=== PATIENT | female | born 1965 | race Two or more races ===

== ENCOUNTER 2017-11-11 12:35 | Emergency (ER) | payer MEDICAID ==
[~2017-11-11] VITALS: Ht 157.5 cm; Wt 63.5 kg
[2017-11-11] MEDS ORDERED: SODIUM CHLORIDE 0.9% 1,000 ML IV ONE (13:13)
[2017-11-11 13:28] LABS: Basophils # (auto) 0 uL; Eosinophils # (auto) 0 uL; Monocytes # (auto) 0.3 uL; Neutrophils # (auto) 2.5 uL; Red Cell Distribution Width 16.3 % (11.8-14.3)
[2017-11-11 13:30] LABS: Basophils % (auto) 0.2 % (0.0-2.0); Eosinophils % (auto) 0.4 % (0.0-7.0); Hemoglobin 15.2 g/dL (12.2-16.2); Lymphocytes # (auto) 1.3 uL; Lymphocytes % (auto) 31.8 % (10.0-50.0); Mean Corpuscular Hemoglobin 36.1 pg (28.0-32.0); Mean Corpuscular Hgb Conc. 34.5 g/dL (32.0-36.0); Mean Corpuscular Volume 104.5 fL (80.0-100.0); Monocytes % (auto) 7.2 % (0.0-12.0); Neutrophils % (auto) 60.4 % (37.0-80.0); Platelet Count (auto) 104 10^3/uL (140-450); Red Blood Cells 4.21 10^6/uL (4.0-5.20); White Blood Cell 4.2 10^3/uL (4.4-10.8)
[2017-11-11 13:48] LABS: Amphetamine Screen, Urine NEGATIVE (NEGATIVE); Barbiturate Scree,Urine NEGATIVE (NEGATIVE); Benzodiazephine Screen, Urine NEGATIVE (NEGATIVE); Cannabinoid Screen, Urine NEGATIVE (NEGATIVE); Cocaine Screen, Urine NEGATIVE (NEGATIVE); Opiate Scree,Urine NEGATIVE (NEGATIVE); Phencyclidine Screen, Urine NEGATIVE (NEGATIVE)
[2017-11-11 13:56] LABS: Albumin 3.8 g/dL (3.4-5.0); BUN/Creatinine Ratio 10.3; Bilirubin, Total 1.2 mg/dL (0.2-1.0); Calcium 8.6 mg/dL (8.5-10.1); Potassium 3.7 mmol/L (3.5-5.1); Total Protein 8.5 g/dL (6.4-8.2)
[2017-11-11] MEDS ORDERED: LORazepam 0.5 MG TAB PO ONE (15:45)
[2017-11-11] MEDS ORDERED: LORazepam 2MG/ML-1ML VIAL ONE (20:11)
[2017-11-11] MEDS ORDERED: LORazepam 2MG/ML-1ML VIAL IV ONE (21:00)
[2017-11-11] MEDS ORDERED: chlordiazePOXIDE HCL 25 MG CAP PO ONE (22:15)
[2017-11-11] MEDS ORDERED: ALPRAZolam 0.5 MG TAB PO ONE (22:30)
[2017-11-12] MEDS ORDERED: LORazepam 2MG/ML-1ML VIAL IV ONE (02:00)
[2017-11-12] MEDS: LORazepam 0.5 MG TAB PO PRN ×2 (06:04→12:26)
[2017-11-12] MEDS ORDERED: CITALOPRAM HYDROBR 20 MG TAB PO SCH (10:00)
[2017-11-12 15:02] VITALS: BP 134/94
[2017-11-12] MEDS ORDERED: LORazepam 0.5 MG TAB PO ONE (15:15)
== END 2017-11-12 14:24 | disposition short-term general hospital (02) ==
LOC: ER 12:38
DX: F10.129 Alcohol abuse with intoxication, unspecified (principal); F41.9 Anxiety disorder, unspecified; F17.210 Nicotine dependence, cigarettes, uncomplicated; Y90.8 Blood alcohol level of 240 mg/100 ml or more
CPT/HCPCS: 36415; 80053; 80307; 80320; 85025; 96374; 96376; 99285; J2060

== ENCOUNTER 2018-11-16 12:06 | Emergency (ER) | payer MEDICAID ==
[~2018-11-16] VITALS: Ht 162.6 cm; Wt 61.2 kg
[2018-11-16] MEDS ORDERED: ALPRAZolam 0.5 MG TAB PO ONE (19:15)
[2018-11-16 19:28] VITALS: BP 125/72
== END 2018-11-16 19:37 | disposition home or self-care (01) ==
LOC: ER 12:06 → EDBD 12:06 → ER 19:37
DX: F41.9 Anxiety disorder, unspecified (principal); F31.9 Bipolar disorder, unspecified; F17.210 Nicotine dependence, cigarettes, uncomplicated
CPT/HCPCS: 93005

== ENCOUNTER 2018-12-30 17:12 | Emergency (ER) | payer MEDICAID ==
[~2018-12-30] VITALS: Ht 170.2 cm; Wt 72.6 kg
[2018-12-30 19:13] LABS: Eosinophils # (auto) 0 uL; White Blood Cell 4.7 10^3/uL (4.4-10.8)
[2018-12-30 19:15] LABS: Basophils # (auto) 0.1 uL; Basophils % (auto) 1.4 % (0.0-2.0); Eosinophils % (auto) 0.4 % (0.0-7.0); Hematocrit 45.1 % (36.0-46.0); Hemoglobin 15.3 g/dL (12.2-16.2); Lymphocytes # (auto) 1.4 uL; Lymphocytes % (auto) 29.1 % (10.0-50.0); Mean Corpuscular Hemoglobin 34.3 pg (28.0-32.0); Mean Corpuscular Volume 100.9 fL (80.0-100.0); Monocytes # (auto) 0.4 uL; Monocytes % (auto) 8.2 % (0.0-12.0); Neutrophils # (auto) 2.9 uL; Neutrophils % (auto) 60.9 % (37.0-80.0); Platelet Count (auto) 80 10^3/uL (140-450); Red Blood Cells 4.47 10^6/uL (4.0-5.20); Red Cell Distribution Width 15.7 % (11.8-14.3)
[2018-12-30 19:27] LABS: Amphetamine Screen, Urine NEGATIVE (NEGATIVE); Barbiturate Scree,Urine NEGATIVE (NEGATIVE); Benzodiazephine Screen, Urine NEGATIVE (NEGATIVE); Cannabinoid Screen, Urine NEGATIVE (NEGATIVE); Cocaine Screen, Urine NEGATIVE (NEGATIVE); Phencyclidine Screen, Urine NEGATIVE (NEGATIVE)
[2018-12-30 19:28] LABS: BUN/Creatinine Ratio 13.1; Potassium 3.6 mmol/L (3.5-5.1)
[2018-12-30] MEDS ORDERED: LORazepam 0.5 MG TAB PO ONE (19:30)
[2018-12-30 19:36] LABS: Opiate Scree,Urine NEGATIVE (NEGATIVE)
[2018-12-30] MEDS ORDERED: FOLIC ACID 1 MG, MULTIPLE VITAMIN 10 ML, MAGNESIUM SULF SDV 50% 8 MEQ, THIAMINE INJ 100... INJ SCH ×5 (19:37)
[2018-12-30 19:38] LABS: Bilirubin, Total 0.6 mg/dL (0.2-1.0); Total Protein 8.4 g/dL (6.4-8.2)
[2018-12-30] MEDS ORDERED: THIAMINE 100mg/ml INJ (200mg/2ml VIAL) IV ONE (22:30)
[2018-12-30] MEDS ORDERED: MVI in SODIUM CHLORIDE 0.9% 1,010 ML ONE (22:57)
[2018-12-31] MEDS ORDERED: SODIUM CHLORIDE 0.9% 500 ML IV ONE (00:30)
[2018-12-31] MEDS ORDERED: SODIUM CHLORIDE 0.9% 1,000 ML IV ONE (00:30)
[2018-12-31] MEDS ORDERED: LORazepam 0.5 MG TAB PO ONE (05:30)
[2018-12-31] MEDS ORDERED: LORazepam 0.5 MG TAB PO SCH (05:50)
[2018-12-31 07:20] VITALS: BP 127/68
[2018-12-31] MEDS ORDERED: FOLIC ACID 1 MG, MULTIPLE VITAMIN 10 ML, MAGNESIUM SULF SDV 50% 8 MEQ, THIAMINE INJ 100... INJ SCH ×10 (12:00→20:00)
== END 2018-12-31 09:02 | disposition home or self-care (01) ==
LOC: EDBD 17:12 → ER 17:33
DX: R41.82 Altered mental status, unspecified (principal); F41.9 Anxiety disorder, unspecified; F31.9 Bipolar disorder, unspecified; G92 Toxic encephalopathy; F17.210 Nicotine dependence, cigarettes, uncomplicated; F10.129 Alcohol abuse with intoxication, unspecified; Y90.8 Blood alcohol level of 240 mg/100 ml or more
CPT/HCPCS: 36415; 80053; 80307; 80320; 83735; 85025; 96361; 96365; 96366; 99284; J3411; J3475; J7030

== ENCOUNTER 2024-07-08 18:42 | Emergency (ER) | payer MEDICAID, OTHER ==
[~2024-07-08] VITALS: Ht 165.1 cm; Wt 72.0 kg
--- NOTE | 2024-07-08 19:10 | ED.PDOC ---
History of Present Illness HPI Comments 58 y/o F is BIBA for suicidal ideations. Per EMS report, patient endorses on drinking a bottle of wine at around 1000, this morning, and developing suicidal ideations afterwards. She reports drinking due to current stressors associated with her ex-spouse and having a history of suicidal ideations in the past whenever intoxicated. On scene, patient only endorsed feeling suicidal without concrete plan or attempt. Patient has an additional history of anxiety, bipolar disorder, small bowel obstruction s/p surgical intervention, and tobacco and alcohol abuse. At time of assessment, patient denies being suicidal in addition to having any homicidal ideations, auditory or visual hallucinations, or further associated symptoms. Chief Complaint: Suicidal Time Seen by MD: 18:50 Primary Care Provider: HILARY Burleson Notes: Nurses Notes, Health Outreach Worker Notes, Medications, Allergies Allergies: Coded Allergies: NO KNOWN ALLERGIES (Unverified , 12/30/18) Information Source: Patient, Emergency Med Personnel Mode of Arrival: EMS Severity: Moderate Timing: Hours Duration: Since onset Prehospital treatment: 12 Lead EKG, Mandolin Repairer Past Medical History PAST MEDICAL HISTORY: Anxiety Past Medical History (Other): suicidal ideations toxic encphalopathy bipolar disorder Surgical History: Appendectomy Surgical History (Other): Small bowel obstruction surgery, cleft lip surgery FACILITIES COORDINATOR History: No Pertinent FACILITIES COORDINATOR History Family History Family History: Unobtainable Social History Smoker: Cigarettes Alcohol: Heavy Drugs: Denies Drug Use Lives In: Home All Other Systems: Reviewed and Negative (Comprehensive systems review obtained and negative except for what is stated in the HPI.) Physical Exam General Appearance: Moderate Distress, Normal HEENT: Normal ENT Inspection, Pharynx Normal, TMs Normal Neck: Full Range of Motion, Non-Tender, Normal, Normal Inspection Respiratory: Chest Non-Tender, Lungs Clear, No Accessory Muscle Use, No Respiratory Distress, Normal Breath Sounds Cardiovascular: No Edema, No JVD, No Murmur, No Gallop, Normal Peripheral Pulses, Regular Rate/Rhythm Breast Exam: Deferred Gastrointestinal: No Organomegaly, Non Tender, No Pulsatile Mass, Normal Bowel Sounds, Soft Genitalia: Deferred Pelvic: Deferred Rectal: Deferred Extremities: No calf tenderness, Normal capillary refill, Normal inspection, Normal range of motion, Non-tender, No pedal edema Musculoskeletal : Apperance: Normal Neurologic: Alert, interventional radiology technologist II-XII nml as Tested, No Motor Deficits, Speech Problem (slurred ), Other (She does have tremors) Cerebellar Function: NOT DONE Reflexes: NOT DONE Skin: Dry, Normal Color, Warm Lymphatic: No Adenopathy Was a procedure done? Was a procedure done?: No Differential Dx Considerations may include: suicidal, depression, hopelessness, toxic metabolic encephalopathy, substance abuse/dependency, among others X-Ray, Labs, Meds, VS Vital Signs Date Time Temp Pulse Resp B/P (MAP) Pulse Ox O2 Delivery O2 Flow Rate FiO2 07/09/24 08:03 98.2 84 14 126/74 (91) 98 98.2 07/09/24 07:47 Room Air* 0 21 07/08/24 20:13 96 16 97 Room Air* 0 21 07/08/24 20:12 97.9 96 16 144/95 (111) 97 97.9 07/08/24 19:01 98.4 105 18 128/92 (104) 95 98.4 Lab Test 07/09/24 08:05 07/08/24 19:06 07/08/24 19:00 Range/Units Plasma/Serum Blood Alcohol < 3.0 328.1 H <10 mg/dL White Blood Count 4.7 4.4-10.8 10^3/uL Red Blood Count 4.96 4.0-5.20 10^6/uL Hemoglobin 15.7 12.2-16.2 g/dL Hematocrit 46.0 36.0-46.0 % Mean Corpuscular Volume 92.8 80.0-100.0 fL Mean Corpuscular Hemoglobin 31.6 28.0-32.0 pg Mean Corpuscular Hemoglobin Concent 34.0 32.0-36.0 g/dL Red Cell Distribution Width 15.2 H 11.8-14.3 % Platelet Count 150 140-450 10^3/uL Mean Platelet Volume 8.8 6.9-10.8 fL Neutrophils (%) (Auto) 52.7 37.0-80.0 % Lymphocytes (%) (Auto) 41.0 10.0-50.0 % Monocytes (%) (Auto) 5.2 0.0-12.0 % Eosinophils (%) (Auto) 0.2 0.0-7.0 % Basophils (%) (Auto) 0.9 0.0-2.0 % Neutrophils # (Auto) 2.5 1.6-8.6 10 ^3/uL Lymphocytes # (Auto) 1.9 0.4-5.4 10 ^3/uL Monocytes # (Auto) 0.2 0-1.3 10 ^3/uL Eosinophils # (Auto) 0 0-0.8 10 ^3/uL Basophils # (Auto) 0 0-0.2 10 ^3/uL Nucleated Red Blood Cells 0.1 % Sodium Level 146 H 136-145 mmol/L Potassium Level 3.8 3.5-5.1 mmol/L Chloride Level 110 H 98-107 mmol/L Carbon Dioxide Level 25 20-31 mmol/L Anion Gap 11 5-15 Blood Urea Nitrogen 8 L 9-23 mg/dL Creatinine 0.73 0.550-1.02 mg/dL Glomerular Filtration Rate Calc 95 >90 mL/min BUN/Creatinine Ratio 11.0 10.0-20.0 Serum Glucose 105 74-106 mg/dL Calcium Level 9.4 8.7-10.4 mg/dL Salicylates Level < 3.0 -30 mg/dL Acetaminophen Level < 2.0 L 10.0-20.0 UG/ML Urine Color Colorless Yellow Urine Clarity Clear Clear Urine pH 5.5 5.0-9.0 Urine Specific [place] 1.006 1.001-1.035 Urine Protein Negative Negative Urine Ketones Negative Negative Urine Blood Trace H Negative /uL Urine Nitrite Negative Negative Urine Bilirubin Negative Negative Urine Urobilinogen Normal Negative mg/dL Urine Leukocyte Esterase Negative Negative /uL Urine RBC <1 0 - 4 /hpf Urine Microscopic WBC < 1 0-5 /HPF Urine Squamous Epithelial Cells None seen <5 /hpf Urine Bacteria None seen None Seen /hpf Urine Glucose Normal Normal mg/dL Urine Opiates Screen Neg NEGATIVE Urine Fentanyl Screen Neg NEGATIVE Urine Barbiturates Screen Neg NEGATIVE Urine Phencyclidine Screen Neg NEGATIVE Urine Amphetamines Screen Neg NEGATIVE Urine Benzodiazepines Screen Neg NEGATIVE Urine Cocaine Screen Neg NEGATIVE Urine Cannabinoids Screen Neg NEGATIVE Current Medications Medications (Trade) Dose Ordered Sig/Bill Route Start Time Stop Time Status Last Admin Lorazepam (Ativan Tablet) 1 mg ONCE ONCE PO 07/08/24 20:45 07/08/24 20:46 DC 07/08/24 20:40 Lorazepam (Ativan Tablet) 1 mg ONCE ONCE PO 07/09/24 03:15 07/09/24 03:16 DC 07/09/24 03:12 Patient alert. History of alcohol use. She has been comfortable. Vitals stable. Was given Ativan. WBC within normal limits. Initial alcohol level was high. She continues to have tremors. She is withdrawing. Establish intravenous access. Was given fluids. Was given thiamine. Was given Librium. Explained to the patient. Continue to monitor. Time of 1ST Reevaluation: 19:20 Reevaluation 1ST: Improved Patient Education/Counseling: Diagnosis, Treatment, Prognosis Family Education/Counseling: No Family Present Additional Information Previous visits reviewed: August 21 and November 11, 2017 and November 16 and December 30, 2018 encounters for epigastric pain, suicidal, anxiety, and EtOH, respectively. The following tests were ordered, and results were reviewed by me: Salicylate, acetaminophen, blood alcohol, drug screen, CBC, BMP, UA Additional Information was gathered from interviewing the following independent historians: EMS I reviewed and agreed with the following test results read by other providers: N/A I discussed treatment and results with medical personnel and: patient Departure 1 Departure Time of Disposition: 09:23 Impression: Primary Impression: Alcohol withdrawal Qualified Codes: F10.939 - Alcohol use, unspecified with withdrawal, unspecified Disposition: ADMITTED INPATIENT Admit to: Med Surg Condition: Guarded Critical Care Note Critical Care Time?: Yes (90 min-critical care time only) Critical care comment: Alcohol withdrawal continue to monitor Stability Stability form required: No Heart Score Heart Score: Heart Score Response (Comments) Value History N/A 0 EKG N/A 0 Age N/A 0 Risk Factors N/A 0 Troponin N/A 0 Total 0 I personally scribed for VIKTORIA CHAVARRIA MD ([email or web address]) on 07/08/24 at 19:10. Electronically submitted by Kvng Evangelista ([email or web address]). VIKTORIA CHAVARRIA MD July 08, 2024 19:10 ANETA MONAHAN MD July 09, 2024 09:24
[2024-07-08 19:15] LABS: Urine Bacteria None Seen /hpf (None Seen)
[2024-07-08 19:21] LABS: Basophils # (auto) 0 10 ^3/uL (0-0.2); Basophils % (auto) 0.9 % (0.0-2.0); Eosinophils # (auto) 0 10 ^3/uL (0-0.8); Eosinophils % (auto) 0.2 % (0.0-7.0); Hemoglobin 15.7 g/dL (12.2-16.2); Lymphocytes # (auto) 1.9 10 ^3/uL (0.4-5.4); Mean Corpuscular Hemoglobin 31.6 pg (28.0-32.0); Mean Corpuscular Volume 92.8 fL (80.0-100.0); Monocytes # (auto) 0.2 10 ^3/uL (0-1.3); Monocytes % (auto) 5.2 % (0.0-12.0); Neutrophils # (auto) 2.5 10 ^3/uL (1.6-8.6); Neutrophils % (auto) 52.7 % (37.0-80.0); Nucleated Red Blood Cells % 0.1 %; Platelet Count (auto) 150 10^3/uL (140-450); Red Blood Cells 4.96 10^6/uL (4.0-5.20); Red Cell Distribution Width 15.2 % (11.8-14.3); White Blood Cell 4.7 10^3/uL (4.4-10.8)
[2024-07-08 19:33] LABS: Urine Blood TRACE /uL (Negative); Urine Clarity Clear (Clear); Urine Color Colorless (Yellow); Urine Protein, UAD Negative (Negative); Urine Specific Gravity 1.006 (1.001-1.035); Urine Squamous Epithelial Cell None Seen /hpf (<5); Urine Urobilinogen Normal (Negative); Urine WBC < 1 /HPF (0-5); Urine pH 5.5 (5.0-9.0)
[2024-07-08 19:34] LABS: Potassium 3.8 mmol/L (3.5-5.1)
[2024-07-08 19:35] LABS: Anion Gap 11 (5-15); Calcium 9.4 mg/dL (8.7-10.4); Carbon Dioxide 25 mmol/L (20-31)
[2024-07-08 19:40] LABS: Glucose 105 mg/dL (74-106)
[2024-07-08 20:08] LABS: Amphetamine Screen, Urine Neg (NEGATIVE); Barbiturate Scree,Urine Neg (NEGATIVE); Benzodiazephine Screen, Urine Neg (NEGATIVE); Cannabinoid Screen, Urine Neg (NEGATIVE); Cocaine Screen, Urine Neg (NEGATIVE); Opiate Scree,Urine Neg (NEGATIVE); Phencyclidine Screen, Urine Neg (NEGATIVE)
[2024-07-08 20:08] LABS: Blood Alcohol 328.1 mg/dL (<10); Blood Urea Nitrogen 8 mg/dL (9-23); Chloride 110 mmol/L (98-107); Sodium 146 mmol/L (136-145)
[2024-07-08 20:10] LABS: Acetaminophen < 2.0 UG/ML (10.0-20.0); Salicylate < 3.0 mg/dL (-30)
[2024-07-08 20:13] VITALS: PULSE 96; RESP 16; O2SAT 97
[2024-07-08] MEDS: LORazepam 0.5 MG TAB PO ONE (20:40)
--- NOTE | 2024-07-09 02:27 | DVHINCON2 ---
Date of Service if different f: July 09, 2024 Time of Service: 01:51 Consult Consult Note PSYCHIATRY ED NEW CONSULT HPI: 58 yo pt with PPH of depression, ETOH use disorder, and anxiety presents to ED BIBA for safety, psychiatric stabilization, and possible med initiation/optimization in setting of ETOH intoxication and SI. Psychiatry consulted for safety evaluation and recommendations in context of current presentation Per pt, reports earlier today self-medicated/relapsed 2/2 recent life stressors with bottle of wine and subsequently starting experiencing passive SI with no plan/intent. Pt now sober and is adamantly denies SI or intent to harm self. Pt also reports she does not recall expressing any SI statements earlier while intoxicated and apologizes to television writer in case she did. Identifies several recent acute psychosocial stressors include interpersonal conflicts with ex- and adult daughter Currently endorses some situational depressed mood but denies hopelessness, helplessness, isolation, negative thoughts, or anhedonia. Denies anxiety/panic/OCD/PTSD symptoms. Also denies AVH/paranoia/catatonic/perceptual disturbances/personality changes. Sleep/appetite/energy/conc relatively WNL. Adamantly denies SI/HI. No overt manic, psychotic, MDD, cognitive, dissociative, panic, OCD, PTSD, or somatic symptoms noted. Overall appears future oriented/goal directed Pt currently does not have active outpt MH services established at this time. Currently not on any psychotropic agents, no prior psych med trials Hx of ETOH dependency, currently has sponsor, hx of multiple relapses, denies THC or IDU with one adult daughter, unemployed, lives by self, some support system noted (immediate family) Unknown trauma hx. Denies FH of psych hospitalizations, suicide attempts, or completed suicides No acute medical/chronic pain issues, hx of seizures/TBI, or recent head injuries, NKDA Some hx of SI but denies hx of SIB/SA/PSG. One prior psych hospitalizations in 2021 for etoh induced mood disorder. Denies history of violence, unprovoked aggression, or assaultive behaviors. Denies recent hx of impulsivity, attention seeking behaviors, anger outbursts, emotional dysregulation, mood reactivity, or engaging in risky behaviors. Denies any legal problems Currently denies SI/HI/AVH. Does not have access to firearms. Identifies self/family as PPF. No acute safety concerns noted during encounter MSE: General Appearance/Behavior: Alert and awake; appears stated age, overweight, fair grooming and hygiene; calm and cooperative, fair eye contact, no PMA/PMR Speech: coherent, rrr Thought Process: linear, logical, appears goal-directed Thought Content: Abnormal Thoughts and Perceptions: denies dissociative symptoms Homicidality / Violent Thoughts: adamantly denies HI Suicidality: adamantly denies SI Hallucinations: denies AVTH Delusions: denies paranoia, persecutory, or grandiose delusions Obsessions /compulsions: None Judgment and Insight: fair/fair Mood & Affect: "better" with mood-congruent, somewhat restricted but appropriate Orientation: oriented to person, place, time Attention/Concentration: appears intact Cognition: grossly intact Assessment: 58 yo pt with PPH of depression, ETOH use disorder, and anxiety presents to ED BIBA for safety, psychiatric stabilization, and possible med initiation/optimization in setting of ETOH intoxication and SI Currently denies SI/HI/AVH. Linear and appears future oriented/goal directed in thought with fair J/I. Identifies several protective factors including a desire to live, family support (grandson), seeking employment, spirituality, etc. No hx of SA/SIB is reassuring. Pt medically cleared Pts presenting MH symptoms appear more secondary to difficulty controlling emotions and ineffective coping mechanisms in context of ETOH intoxication 2/2 recent acute psychosocial stressors (see HPI) with minimal interference in daily functioning Presently, pt does not show any signs of immediate danger to self/others or GD that would necessitate 5150 or involuntary inpatient psych admission. However offered voluntary inpt psychiatric hospitalization but pt declined. Also declined further ED observation/reevaluation. No acute safety concerns noted. Acute suicide risk appears nonexistent to relatively low Pt currently does not have psychiatrist/therapist out in community although interested in seeking MH resources prior to d/c for psychotherapy Currently not on any psychotropics. Pt would benefit from Naltrexone trial for tx of ETOH use disorder Primary Diagnosis: Adjustment disorder with other symptoms. ETOH use disorder, unspecified. R/o ETOH induced mood disorder Plan: Does not warrant involuntary inpatient psychiatric hospitalization or 5150 hold at this time No acute safety concerns Pt can be safely discharged back to current residence Recommend d/c pt on 3-4 week rx for Naltrexone 50 mg po qd Risks/benefits/alternative treatments discussed, informed consent provided by pt Supportive tx/OK provided, discussed safety plan with pt Emphasized sleep hygiene, exercise, healthy nutrition, LIMIT EtOH intake, and social activation Encouraged mindfulness techniques (reading, walking, meditation, journaling, exercise, deep breathing) during times of stress Would benefit from establishing community MH services for psychotx please provide pt MH resources prior to discharge per pts request for psychotherapy Encouraged f/u with PCP for routine medical/preventive care Instructed pt to call/text [phone] or return to ED if MH symptoms worsen or new onset SI/HI upon discharge Pt verbalized understanding and is receptive to above tx plan This case was discussed with ED nurse/provider and all parties in agreement with above tx plan Ramesh Masters MD Plan discussed with: Patient RAMESH MASTERS MD July 09, 2024 02:27
[2024-07-09] MEDS: LORazepam 0.5 MG TAB PO ONE (03:12)
[2024-07-09 08:03] VITALS: BP 126/74; PULSE 84; RESP 14; TEMP 98.2; O2SAT 98
== END 2024-07-09 10:41 | disposition left against medical advice (07) ==
LOC: EDBD 18:42 → ER 18:42
DX: F10.139 Alcohol abuse with withdrawal, unspecified (principal); F31.9 Bipolar disorder, unspecified; F17.210 Nicotine dependence, cigarettes, uncomplicated; Z90.49 Acquired absence of other specified parts of digestive tract; Z79.899 Other long term (current) drug therapy; Y90.9 Presence of alcohol in blood, level not specified
CPT/HCPCS: 36415; 80048; 80307; 80320; 80329; 81001; 85025

== ENCOUNTER 2024-07-19 03:36 | Inpatient (IN) | payer MEDICAID ==
[~2024-07-19] VITALS: Ht 160 cm; Wt 63.8 kg
--- NOTE | 2024-07-19 04:05 | ED.PDOC ---
History of Present Illness HPI Comments 58-year-old female came to ER via EMS for alcohol withdrawals. Patient chronic alcoholism. Claims to have been sober for 3 years, but started drinking 2 weeks ago. Last drank was few hours ago, finish half a bottle of wine, about an hour ago she woke up, feeling very anxious, with dizziness, lightheadedness. Patient states she felt confused and disoriented. Thinks she is having withdrawal symptoms. Chief Complaint: Withdrawal Time Seen by MD: 04:04 Primary Care Provider: UNKNOWN Reviewed Notes: Nurses Notes Allergies: Coded Allergies: NO KNOWN ALLERGIES (Unverified , 12/30/18) Mode of Arrival: EMS Past Medical History PAST MEDICAL HISTORY: Anxiety Surgical History: Appendectomy CHICKEN HANGER History: No Pertinent CHICKEN HANGER History Family History Family History: Reviewed,noncontributory to illness Social History Smoker: Cigarettes Alcohol: Heavy Drugs: Denies Drug Use Lives In: Home Constitutional: denies: chills, diaphoresis, fatigue, fever, malaise, sweats, weakness, others EENTM: denies: blurred vision, double vision, ear bleeding, ear discharge, ear drainage, ear pain, ear ringing, eye pain, eye redness, hearing loss, mouth pain, mouth swelling, nasal discharge, nose bleeding, nose congestion, nose pain, photophobia, tearing, throat pain, throat swelling, voice changes, others Respiratory: denies: cough, hemoptysis, orthopnea, SOB at rest, shortness of breath, SOB with excertion, stridor, wheezing, others Cardiovascular: denies: chest pain, dizzy spells, diaphoresis, Dyspnea on exertion, edema, irregular heart beat, left arm pain, lightheadedness, palpitations, PND, syncope, others Gastrointestinal: denies: abdomen distended, abdominal pain, blood streaked bowels, constipated, diarrhea, dysphagia, difficulty swallowing, hematemesis, melena, nausea, poor appetite, poor fluid intake, rectal bleeding, rectal pain, vomiting, others Genitourinary: denies: abnormal vagina bleeding, burning, dyspareunia, dysuria, flank pain, frequency, hematuria, incontinence, pain, , vagina discharge, urgency, others Neurological: reports: tremors; denies: dizziness, fainting, headache, left sided numbness, left sided weakness, numbness, paresthesia, pre-existing deficit, right sided numbness, right sided weakness, seizure, speech problems, tingling, weakness, others Musculoskeletal: denies: back pain, gout, joint pain, joint swelling, muscle pain, muscle stiffness, neck pain, others Integumetry: denies: bruises, change in color, change in hair/nails, dryness, laceration, lesions, lumps, rash, wounds, others Allergic/Immunocompromised: denies: Difficulty Healing, Frequent Infections, Hives, Itching, others Hematologic/Lymphatic: denies: anemia, blood clots, easy bleeding, easy bruising, swollen glands, others Endocrine: denies: excessive hunger, excessive sweating, excessive thirst, excessive urination, flushing, intolerance to cold, intolerance to heat, unexplained weight gain, unexplained weight loss, others Psychiatric: reports: anxiety; denies: bipolar disorder, depression, hopeless, panic disorder, schizophrenia, sleepless, suicidal, others Physical Exam General Appearance: No Apparent Distress, Normal HEENT: Normal ENT Inspection, Pharynx Normal, TMs Normal Neck: Full Range of Motion, Non-Tender, Normal, Normal Inspection Respiratory: Chest Non-Tender, Lungs Clear, No Accessory Muscle Use, No Respiratory Distress, Normal Breath Sounds Cardiovascular: No Edema, No JVD, No Murmur, No Gallop, Normal Peripheral Pulses, Regular Rate/Rhythm Breast Exam: Deferred Gastrointestinal: No Organomegaly, Non Tender, No Pulsatile Mass, Normal Bowel Sounds, Soft Genitalia: Deferred Pelvic: Deferred Rectal: Deferred Extremities: No calf tenderness, Normal capillary refill, Normal inspection, Normal range of motion, Non-tender, No pedal edema Musculoskeletal : Apperance: Normal Neurologic: Alert, customer development manager II-XII nml as Tested, No Motor Deficits, Normal Affect, Normal Mood, No Sensory Deficits Cerebellar Function: Normal Reflexes: Normal Skin: Dry, Normal Color, Warm Lymphatic: No Adenopathy Was a procedure done? Was a procedure done?: No Differential Dx Considerations may include: Alcohol intoxication, alcohol withdrawals, anxiety, dizziness X-Ray, Labs, Meds, VS Vital Signs Date Time Temp Pulse Resp B/P (MAP) Pulse Ox O2 Delivery O2 Flow Rate FiO2 07/19/24 05:50 97.6 76 18 134/85 (101) 97 97.6 07/19/24 03:44 97.8 91 18 130/90 (103) 99 97.8 Lab Test 07/19/24 05:37 Range/Units White Blood Count Pending Red Blood Count Pending Hemoglobin Pending Hematocrit Pending Mean Corpuscular Volume Pending Mean Corpuscular Hemoglobin Pending Mean Corpuscular Hemoglobin Concent Pending Red Cell Distribution Width Pending Platelet Count Pending Mean Platelet Volume Pending Neutrophils (%) (Auto) Pending Lymphocytes (%) (Auto) Pending Monocytes (%) (Auto) Pending Basophils (%) (Auto) Pending Neutrophils # (Auto) Pending Lymphocytes # (Auto) Pending Monocytes # (Auto) Pending Sodium Level Pending Potassium Level Pending Chloride Level Pending Carbon Dioxide Level Pending Anion Gap Pending Blood Urea Nitrogen Pending Creatinine Pending Glomerular Filtration Rate Calc Pending BUN/Creatinine Ratio Pending Serum Glucose Pending Calcium Level Pending Magnesium Level Pending Total Bilirubin Pending Aspartate Amino Transferase (AST) Pending Alanine Aminotransferase (ALT) Pending Alkaline Phosphatase Pending Total Protein Pending Albumin Pending Salicylates Level Pending Acetaminophen Level Pending Plasma/Serum Blood Alcohol Pending Time of 1ST Reevaluation: 04:00 Reevaluation 1ST: Unchanged Patient Education/Counseling: Diagnosis, Treatment Family Education/Counseling: No Family Present Departure 1 Departure Time of Disposition: 06:04 Impression: Primary Impression: Alcohol withdrawal Additional Impression: Dehydration Disposition: 09 ADMITTED INPATIENT Admit to: Med Surg Condition: Guarded Discharged With: Self Comments Bernadette for Alcohol Withdrawal from [employer] on 07/19/2024 RESULT SUMMARY: 18 points Patients with scores ?9 may require medication for withdrawal. INPUTS: Nausea/vomiting > 2 = (More severe symptoms) Tremor > 4 = Moderate, with patient's arms extended Paroxysmal sweats > 1 = Barely perceptible sweating, palms moist Anxiety > 5 = (More severe symptoms) Agitation > 3 = (More severe symptoms) Tactile disturbances > 1 = Very mild itching, pin and needles, burning, or numbness Auditory disturbances > 0 = Not present Visual disturbances > 0 = Not present Headache/fullness in head > 2 = Mild Orientation/clouding of sensorium > 0 = Oriented, can do serial additions Alcohol Withdrawal Chief Complaint: Alcohol withdrawal symptoms History of Present Illness: 58-year-old female presents via EMS with symptoms of alcohol withdrawal. Patient reports she was a regular alcohol user who had achieved several months of sobriety before relapsing two weeks ago. She attempted to quit drinking again two days ago, subsequently developing anxiety, insomnia, and tremors. Initial CIWA score was documented as 18, indicating moderate to severe withdrawal. Patient required immediate intervention with IV fluids and Ativan for symptom management. Review of Systems: Constitutional: Positive for anxiety and tremors Neurological: Positive for tremors Psychiatric: Positive for anxiety and insomnia All other systems reviewed and negative Social History: Alcohol: Recent relapse after several months of sobriety Recent attempt to quit drinking 2 days ago Lab Results: CIWA Score: 18 (indicating moderate to severe withdrawal) Imaging and Other Relevant Results: No imaging studies reported Medical Decision Making: Summary Statement: 58-year-old female with history of alcohol use disorder presenting with moderate to severe withdrawal symptoms after recent relapse and attempted cessation. Problem List: 1. Acute alcohol withdrawal 2. Dehydration 3. Alcohol Use Disorder Differential Diagnosis: 1. Acute alcohol withdrawal 2. Delirium tremens 3. Anxiety disorder 4. Electrolyte imbalance 5. Infection ED Course: Patient received IV fluids and Ativan for withdrawal symptoms. Given elevated CIWA score of 18, decision made to admit for monitoring and management of acute withdrawal. Assessment and Plan: 1. Acute Alcohol Withdrawal - Moderate to severe withdrawal with CIWA score 18 - Initiated treatment with IV fluids and Ativan - Admission to hospital for continued monitoring and management 2. Dehydration - Providing IV fluid hydration - Will monitor fluid status and electrolytes during admission 3. Alcohol Use Disorder - Will arrange addiction medicine consultation during admission - Discuss outpatient treatment options and support services Billing Information: ICD-10: F10.239 - Alcohol dependence with withdrawal, unspecified ICD-10: E86.0 - Dehydration ICD-10: F10.20 - Alcohol dependence, uncomplicated Critical Care Note Critical Care Time?: No Stability Stability form required: No Heart Score Heart Score: Heart Score Response (Comments) Value History N/A 0 EKG N/A 0 Age N/A 0 Risk Factors N/A 0 Troponin N/A 0 Total 0 I personally scribed for PENG GUAMAN MD ([email or web address]) on 07/19/24 at 04:05. Electronically submitted by Juaquin Valentine ([email or web address]). PENG GUAMAN MD Jul 19, 2024 04:05
[2024-07-19 05:50] VITALS: BP 134/85; PULSE 76; RESP 18; TEMP 97.6; O2SAT 97
[2024-07-19 06:04] LABS: Alkaline Phosphatase 103 U/L (46-116); Anion Gap 15 (5-15); BUN/Creatinine Ratio 14.7 (10.0-20.0); Bilirubin, Total 0.9 mg/dL (0.2-1.0); Blood Alcohol 33.3 mg/dL (<10); Blood Urea Nitrogen 10 mg/dL (9-23); Calcium 9.9 mg/dL (8.7-10.4); Carbon Dioxide 22 mmol/L (20-31); Chloride 102 mmol/L (98-107); Glucose 100 mg/dL (74-106); Magnesium 2.2 mg/dL (1.6-2.6); Potassium 3.8 mmol/L (3.5-5.1); Sodium 139 mmol/L (136-145); Total Protein 7.8 g/dL (5.7-8.2)
[2024-07-19 06:12] LABS: Basophils # (auto) 0 10 ^3/uL (0-0.2); Basophils % (auto) 0.3 % (0.0-2.0); Eosinophils # (auto) 0 10 ^3/uL (0-0.8); Eosinophils % (auto) 0.1 % (0.0-7.0); Hematocrit 42.3 % (36.0-46.0); Hemoglobin 14.5 g/dL (12.2-16.2); Lymphocytes # (auto) 0.6 10 ^3/uL (0.4-5.4); Lymphocytes % (auto) 12.2 % (10.0-50.0); Mean Corpuscular Hemoglobin 32.3 pg (28.0-32.0); Mean Corpuscular Hgb Conc. 34.2 g/dL (32.0-36.0); Mean Corpuscular Volume 94.5 fL (80.0-100.0); Monocytes # (auto) 0.3 10 ^3/uL (0-1.3); Monocytes % (auto) 5.8 % (0.0-12.0); Neutrophils # (auto) 4.3 10 ^3/uL (1.6-8.6); Neutrophils % (auto) 81.6 % (37.0-80.0); Nucleated Red Blood Cells % 0.1 %; Platelet Count (auto) 109 10^3/uL (140-450); Red Blood Cells 4.48 10^6/uL (4.0-5.20); White Blood Cell 5.2 10^3/uL (4.4-10.8)
[2024-07-19] MEDS: LORazepam 2MG/ML-1ML VIAL IV ONE ×2 (06:12→07:15)
[2024-07-19] MEDS: SODIUM CHLORIDE 0.9% 1,000 ML IVB ONE (06:13)
[2024-07-19 06:20] LABS: Alanine Aminotransferase 163 U/L (7-40); Albumin 4.9 g/dL (3.2-4.8); Aspartate Aminotransferase 168 U/L (13-40)
[2024-07-19 06:22] LABS: Acetaminophen < 2.0 UG/ML (10.0-20.0); Salicylate < 3.0 mg/dL (-30)
[2024-07-19] MEDS: chlordiazePOXIDE HCL 25 MG CAP PO SCH (07:33)
[2024-07-19 07:47] VITALS: PULSE 86; RESP 22; O2SAT 97
[2024-07-19] MEDS: FOLIC ACID 1 MG, MULTIPLE VITAMIN 10 ML, MAGNESIUM SULF SDV 50% 8 MEQ, THIAMINE INJ 100... INJ ONE (08:08)
[2024-07-19] MEDS: LORazepam 2MG/ML-1ML VIAL IV SCH (08:15)
--- NOTE | 2024-07-19 08:42 | ECG ---
[facility] Test Date: 2024-07-19 Test Time: 06:02:02 Pat Name: SARAH ODONNELL Department: ER Room: [facility] Gender: F Condemnation Engineer: : 1965 Requested By: PENG GUAMAN Order Number: [id number] Reading MD: David Esquivel Measurements Intervals [place] Rate: 76 P: 58 SD: 138 QRS: 61 QRSD: 82 T: 56 QT: 417 QTc: 469 Interpretive Statements Sinus rhythm RSR' in V1 or V2, right VCD or RVH Baseline wander in lead(s) V3 Electronically Signed On 07-22-2024 20:53:12 PDT by David Esquivel Please click the below link to view image of tracing.
[2024-07-19] MEDS ORDERED: HYDROcodone-ACET 5/325MG TAB PO PRN (09:15)
[2024-07-19] MEDS ORDERED: ACETAMINOPHEN 325 MG TAB PO PRN (09:15)
[2024-07-19] MEDS: SODIUM CHLORIDE 0.9% 1,000 ML IV ONE (09:44)
--- NOTE | 2024-07-19 09:45 | DVHHP2 ---
History of Present Illness Reason for Visit: Withdrawal History of Present Illness Viola Ingram is a 58-year-old female with past medical history of anxiety, who came to the hospital for ETOH withdrawal. Patient states she was sober from alcohol for about 3.5 years, but about 2 weeks ago due to stress she began drinking again. She states she has been drinking 1 bottle of wine a day. She came to the hospital today due to feeling signs/symptoms of withdrawal. She states she has been nauseated, diaphoretic, has tremors, and dizzy. Psych: Anxiety Past Surgical History: Appendectomy, Other (SBO, cleft lip) Smoke: <1 pack per day ALCOHOL: heavy Drugs: None Lives: with Family Domestic Violence: Neg Review of Systems Constitutional: Yes: Sweats, Malaise; No: Fever, Chills, Weakness, Other Eyes: No: Pain, Vision change, Conjunctivae inflammation, Eyelid inflammation, Other, Redness ENT: No: Ear pain, Ear discharge, Nose pain, Nose discharge, Nose congestion, Mouth pain, Mouth swelling, Throat pain, Throat swelling, Other Respiratory: No: Cough, Dry, Shortness of breath, SOB with excertion, Wheezing, Hemoptysis, Pleuritic Pain, Sputum, Wheezing, Other Cardiovascular: No: Chest Pain, Palpitations, Orthopnea, Paroxysmal Noc. Dyspnea, Edema, Lt Headedness, Other Gastrointestinal: Nausea; No: Vomiting, Abdominal Pain, Diarrhea, Constipation, Melena, Hematochezia, Other Genitourinary: No Dysuria, No Frequency, No Incontinence, No Hematuria, No Retention, No Other Musculoskeletal: No: other, neck pain, shoulder pain, arm pain, back pain, hand pain, leg pain, foot pain Skin: No: Rash, Lesions, Jaundice, Bruising, Other Neurological: Incoordination, Other (dizzy, tremors); No: Weakness, Numbness, Change in speech, Confusion, Seizures Allergies: Coded Allergies: NO KNOWN ALLERGIES (Unverified , 12/30/18) Medications Current Medications Medications Dose Ordered Sig/Bill Route Start Time Stop Time Status Last Admin Dose Admin Folic Acid 1 mg/ Multivitamins 10 ml/Magnesium Sulfate 8 meq/ Thiamine HCl 100 mg/Dextrose 1,013.2 ml @ 125.001 mls/hr DAILY@1800 INJ 07/20/24 18:00 Chlordiazepoxide HCl 50 mg Q8H PO 07/19/24 07:30 07/19/24 23:31 07/19/24 07:33 50 MG Chlordiazepoxide HCl 50 mg Q12HR PO 07/20/24 10:00 07/20/24 22:01 Chlordiazepoxide HCl 25 mg Q12HR PO 07/21/24 10:00 07/21/24 22:01 Chlordiazepoxide HCl 25 mg QAM PO 07/22/24 07:00 07/22/24 07:01 Lorazepam 1 mg Q4H IV 07/19/24 07:45 07/19/24 08:15 1 MG Lorazepam 1 mg Q2HPRN PRN IV 07/19/24 07:45 Exam Vital Signs Vital Signs Date Time Temp Pulse Resp B/P (MAP) Pulse Ox O2 Delivery O2 Flow Rate FiO2 07/19/24 07:47 86 22 97 Room Air* 0 21 07/19/24 07:47 126/68 (87) 07/19/24 05:50 97.6 97.6 General Appearance: Alert, Oriented X3, Cooperative, mild distress, Other (diaphoretic, has tremors, and dizzy) HEENT: Atraumatic, PERRLA Respiratory: Clear to auscultation, Normal air movement Cardiovascular: Regular rate, Normal S1, Normal S2, No murmurs Abdominal: Normal bowel sounds, Soft, Other (nausea) Extremities: No clubbing, No cyanosis Skin: No rashes, No breakdown Neuro: Normal gait, Normal speech Psych/Mental Status: Mental status NL, Mood NL Labs/Xrays Labs Test 07/19/24 05:37 Range/Units White Blood Count 5.2 4.4-10.8 10^3/uL Red Blood Count 4.48 4.0-5.20 10^6/uL Hemoglobin 14.5 12.2-16.2 g/dL Hematocrit 42.3 36.0-46.0 % Mean Corpuscular Volume 94.5 80.0-100.0 fL Mean Corpuscular Hemoglobin 32.3 H 28.0-32.0 pg Mean Corpuscular Hemoglobin Concent 34.2 32.0-36.0 g/dL Red Cell Distribution Width 16.0 H 11.8-14.3 % Platelet Count 109 L 140-450 10^3/uL Mean Platelet Volume 9.0 6.9-10.8 fL Neutrophils (%) (Auto) 81.6 H 37.0-80.0 % Lymphocytes (%) (Auto) 12.2 10.0-50.0 % Monocytes (%) (Auto) 5.8 0.0-12.0 % Eosinophils (%) (Auto) 0.1 0.0-7.0 % Basophils (%) (Auto) 0.3 0.0-2.0 % Neutrophils # (Auto) 4.3 1.6-8.6 10 ^3/uL Lymphocytes # (Auto) 0.6 0.4-5.4 10 ^3/uL Monocytes # (Auto) 0.3 0-1.3 10 ^3/uL Eosinophils # (Auto) 0 0-0.8 10 ^3/uL Basophils # (Auto) 0 0-0.2 10 ^3/uL Nucleated Red Blood Cells 0.1 % Sodium Level 139 136-145 mmol/L Potassium Level 3.8 3.5-5.1 mmol/L Chloride Level 102 98-107 mmol/L Carbon Dioxide Level 22 20-31 mmol/L Anion Gap 15 5-15 Blood Urea Nitrogen 10 9-23 mg/dL Creatinine 0.68 0.550-1.02 mg/dL Glomerular Filtration Rate Calc 101 >90 mL/min BUN/Creatinine Ratio 14.7 10.0-20.0 Serum Glucose 100 74-106 mg/dL Calcium Level 9.9 8.7-10.4 mg/dL Magnesium Level 2.2 1.6-2.6 mg/dL Total Bilirubin 0.9 0.2-1.0 mg/dL Aspartate Amino Transferase (AST) 168 H 13-40 U/L Alanine Aminotransferase (ALT) 163 H 7-40 U/L Alkaline Phosphatase 103 46-116 U/L Total Protein 7.8 5.7-8.2 g/dL Albumin 4.9 H 3.2-4.8 g/dL Salicylates Level < 3.0 -30 mg/dL Acetaminophen Level < 2.0 L 10.0-20.0 UG/ML Plasma/Serum Blood Alcohol 33.3 H <10 mg/dL Assessment/Plan Assessment/Plan Assessment: Alcohol withdrawal, Transaminitis, ETOH abuse, Anxiety, Plan: Admit to Med-Surg, ETOH withdrawal assessment, IV hydration, IV Ativan scheduled and as needed, Tapering Librium dose, Supplemental vitamins, Liver ultrasound, Plan discussed with: Patient My Orders Orders - JORY CYR Procedure Category Date Status Time Admit ADMIT 07/19/24 Transmitted 09:10 Code Status CODE 07/19/24 Transmitted 09:10 Hydrocodone-Acet PHA 07/19/24 Transmitted 5/325mg Tab ([place] 09:15 Ondansetron Hcl PHA 07/19/24 Transmitted (Zofran) 09:15 Docusate Sodium PHA 07/19/24 Transmitted Capsule ([place] 09:15 Complete Blood Count LAB 07/20/24 Verified 04:00 Comprehensive LAB 07/20/24 Verified Metabolic Panel 04:00 Condition: Serious AVELINO 07/19/24 Transmitted 09:10 Acetaminophen Tablet PHA 07/19/24 Transmitted (Tylenol Tablet) 09:15 Thiamine Tab PHA 07/19/24 Transmitted 10:00 Multiple Vitamin PHA 07/19/24 Transmitted Tablet (Mvi Tab) 10:00 NS PHA 07/19/24 Verified 09:30 Date of Service: Jul 19, 2024 Billing Provider: JORY CYR Common Visit Codes: [id number] INP/OBS CARE (MOD) JORY CYR Jul 19, 2024 09:45
[2024-07-19] MEDS ORDERED: MULTIPLE VITAMIN TAB PO SCH (10:00)
[2024-07-19] MEDS ORDERED: THIAMINE HCL 100 MG TAB PO SCH (10:00)
[2024-07-19 14:17] LABS: Benzodiazephine Screen, Urine Neg (NEGATIVE)
[2024-07-19 14:20] LABS: Amphetamine Screen, Urine Neg (NEGATIVE); Barbiturate Scree,Urine Neg (NEGATIVE); Cannabinoid Screen, Urine Neg (NEGATIVE); Cocaine Screen, Urine Neg (NEGATIVE); Opiate Scree,Urine Neg (NEGATIVE); Phencyclidine Screen, Urine Neg (NEGATIVE)
[2024-07-19] MEDS: LORazepam 2MG/ML-1ML VIAL IV PRN (17:20)
[2024-07-19 17:35] VITALS: BP 111/71; PULSE 68; RESP 18; TEMP 97.6; O2SAT 99
[2024-07-19 18:04] VITALS: RESP 18
[2024-07-19 20:00] VITALS: O2SAT 96
[2024-07-19 21:00] VITALS: BP 106/64; PULSE 80; RESP 17; TEMP 97.7; O2SAT 96
--- NOTE | 2024-07-19 23:03 | DVH ---
INDICATION: elevated liver enzymes TECHNIQUE: Multiple real-time sonographic images were obtained of the right upper quadrant. COMPARISON: None FINDINGS: The liver demonstrates diffusely increased echotexture without focal mass lesions. The live r measures 16.8 cm. Normal hepatopetal portal flow identified. No evidence of pleural effusion or abd ominal ascites. There is no intrahepatic or extrahepatic ductal dilatation. The common duct measures 0.4 cm. The gallbladder is without evidence of stone or sludge. The gallbladder wall measures 0.2 cm and is w ithin normal limits. Negative sonographic chavis's sign. The right kidney measures 11.2 cm. The right kidney is normal in contour, size, and shape. The echoge nicity is normal. There is no hydronephrosis. The pancreas is not well visualized due to overlying bowel gas. IMPRESSION: 1. Hepatic steatosis. Otherwise unremarkable right upper quadrant sonogram.
[2024-07-20] VITALS (7 sets, daily range): BP systolic 95–121; BP diastolic 61–75; PULSE 63–74; RESP 17–18; TEMP 96.9–98.2; O2SAT 96–100
[2024-07-20 07:45] LABS: Basophils # (auto) 0 10 ^3/uL (0-0.2); Basophils % (auto) 0.8 % (0.0-2.0); Eosinophils # (auto) 0 10 ^3/uL (0-0.8); Eosinophils % (auto) 1.6 % (0.0-7.0); Hematocrit 39.2 % (36.0-46.0); Hemoglobin 13.4 g/dL (12.2-16.2); Lymphocytes # (auto) 0.9 10 ^3/uL (0.4-5.4); Lymphocytes % (auto) 31.1 % (10.0-50.0); Mean Corpuscular Hemoglobin 32.6 pg (28.0-32.0); Mean Corpuscular Hgb Conc. 34.3 g/dL (32.0-36.0); Monocytes # (auto) 0.2 10 ^3/uL (0-1.3); Monocytes % (auto) 6.5 % (0.0-12.0); Neutrophils # (auto) 1.8 10 ^3/uL (1.6-8.6); Nucleated Red Blood Cells % 0.1 %; Red Blood Cells 4.13 10^6/uL (4.0-5.20); White Blood Cell 2.9 10^3/uL (4.4-10.8)
[2024-07-20 07:55] LABS: Platelet Count (auto) 77 10^3/uL (140-450)
[2024-07-20 08:14] LABS: Alkaline Phosphatase 81 U/L (46-116); Anion Gap 9 (5-15); BUN/Creatinine Ratio 12.5 (10.0-20.0); Blood Urea Nitrogen 10 mg/dL (9-23); Calcium 9.3 mg/dL (8.7-10.4); Carbon Dioxide 29 mmol/L (20-31); Chloride 105 mmol/L (98-107); Glucose 87 mg/dL (74-106); Potassium 3.5 mmol/L (3.5-5.1); Sodium 143 mmol/L (136-145); Total Protein 6.4 g/dL (5.7-8.2)
[2024-07-20 08:16] LABS: Bilirubin, Total 0.9 mg/dL (0.2-1.0)
[2024-07-20 08:22] LABS: Alanine Aminotransferase 103 U/L (7-40); Aspartate Aminotransferase 83 U/L (13-40)
[2024-07-20] MEDS: chlordiazePOXIDE HCL 25 MG CAP PO SCH (08:57)
[2024-07-20] MEDS: LORazepam 2MG/ML-1ML VIAL IV SCH (10:11)
[2024-07-20] MEDS: THIAMINE HCL 100 MG TAB PO ONE (15:32)
[2024-07-20] MEDS: MULTIPLE VITAMIN TAB PO ONE (15:32)
[2024-07-20] MEDS: FOLIC ACID 1 MG TAB PO ONE (15:33)
[2024-07-20] MEDS ORDERED: FOLIC ACID 1 MG, MULTIPLE VITAMIN 10 ML, MAGNESIUM SULF SDV 50% 8 MEQ, THIAMINE INJ 100... INJ SCH (18:00)
--- NOTE | 2024-07-20 18:55 | DVHPNRES ---
Progress Note Date Seen: Jul 20, 2024 Resident Creating Document: ANATOLIY LABOY RESIDENT Medical Necessity Reason Pt with a Central, PICC or Fol: No Subjective Review of Systems This is a 58-year-old female with past medical history of chronic alcoholism who presented to the ER with a chief complaint of dizziness for a day. Patient reports that her and kids abandoned her and moved to a new house, therefore the patient relapsed after couple of years and has been drinking 1 bottle of wine every day for the past 2 weeks. 07/19 morning patient woke up and the room was spinning, denies any fall or trauma. Reports that her last drink was on 07/19. Systemic ospina, patient reports chills, and resting tremors of hands and generalized weakness, diarrhea for the past 6 days, nonbloody but denies fever. Patient has been also experiencing chest pain, pressure type, diffusely in chest, nonradiating, intermittently for the past couple of days. On arrival to the ER. EKG completed, showed NSR. Past medical history: Chronic alcoholism Past surgical history: Denies PCP: None, patient last saw 1 year ago Home medications: None Patient seen and examined at the bedside. Reports chest pain. Repeat EKG pending. Objective vital signs Vital Sign Date Time Temp Pulse Resp B/P (MAP) Pulse Ox O2 Delivery O2 Flow Rate FiO2 07/20/24 17:21 97.4 74 18 121/67 (85) 100 97.4 07/20/24 08:00 Room Air* 0 21 Total Intake and Output 07/19/24 07/19/24 07/20/24 15:00 23:00 07:00 Intake Total 2875 ml 125 ml 125 ml Balance 2875 ml 125 ml 125 ml medications Current Medications Medications Dose Ordered Sig/Bill Route Start Time Stop Time Status Last Admin Dose Admin Chlordiazepoxide HCl 50 mg Q12HR PO 07/20/24 10:00 07/20/24 22:01 07/20/24 08:57 50 MG Chlordiazepoxide HCl 25 mg Q12HR PO 07/21/24 10:00 07/21/24 22:01 Chlordiazepoxide HCl 25 mg QAM PO 07/22/24 07:00 07/22/24 07:01 Lorazepam 1 mg Q2HPRN PRN IV 07/19/24 07:45 07/20/24 12:43 1 MG Acetaminophen/ Hydrocodone Bitart 1 tab Q4HP PRN PO 07/19/24 09:15 Ondansetron HCl 4 mg Q4HP PRN IV 07/19/24 09:15 Docusate Sodium 100 mg BIDPRN PRN PO 07/19/24 09:15 Acetaminophen 650 mg Q6HP PRN PO 07/19/24 09:15 Lorazepam 1 mg Q4H IV 07/20/24 10:00 07/20/24 17:44 1 MG Folic Acid 1 mg DAILY PO 07/21/24 10:00 Multivitamins 1 tab DAILY PO 07/21/24 10:00 Magnesium Oxide 400 mg DAILY PO 07/21/24 10:00 Thiamine HCl 100 mg DAILY PO 07/21/24 10:00 Examination Patient lying in bed, in no acute distress. Patient has resting tremors. Mood is sad. No HI/SI. General: Well-built, afebrile, palor, mucosae are moist Cardiovascular: Regular S1 and S2. No murmurs, gallops or rubs. No JVD elevation. No pedal edema Respiratory: Normal B/L air entry on room air. Clear lung sounds on auscultation Abdomen: Soft, nontender, nondistended, normoactive bowel sounds, no rebound tenderness, no organomegaly, no masses Genitourinary: Deferred MSK/skin: Mobilizes 4 limbs. Skin is dry and warm Neurological: No motor, no sensitive deficits, normal speech. Pupils are isocoric and reactive. Psych/Mental Status: A/Ox3 laboratory and microbiology Laboratory Tests 07/20/24 06:52 Test 07/20/24 06:52 Range/Units Serum Glucose 87 74-106 mg/dL Labs and/or images reviewed: Labs reviewed by me, Image(s) reviewed by me Problem List/Assessment/Plan Problem List/Assessment/Plan Acute alcoholic intoxication Alcoholic withdrawal Chronic alcoholism, relapse after 2 years Banana bag daily Thiamine/folic acid supplemented CIWA protocol, Librium taper initiated Ativan q.4 hours Chest pain: Rule out ACS Aspirin 325 administered Atorvastatin can not be initiated given transaminitis EKG repeat pending, EKG on arrival showed NSR Telemetry unit Troponin pending Transaminitis likely secondary to alcoholic steatosis Hepatitis panel pending Thrombocytopenia likely due to alcoholism Monitor Vitamin-D deficiency Supplemented administrative services specialist consulted for resources for rehab [facility] mg sc daily Plan discussed with patient in which all questions have been answered Goals of care discussed for more than 20 minutes, full code status Case discussed with Dr. Carlson Plan discussed with: Patient ANAOTLIY LABOY RESIDENT Jul 20, 2024 18:55
[2024-07-20 20:22] LABS: Folate (Folic Acid) 19.59 ng/mL (>5.38)
[2024-07-20 20:28] LABS: INR 1.04 (0.9-1.15); Partial Thromboplastin Time 26.5 SEC (24.5-34.5)
[2024-07-20 21:05] LABS: Free T4 (Free Thyroxine) 0.89 ng/dL (0.89-1.76); T3 Total 1.11 ng/mL (0.60-1.81)
[2024-07-20] MEDS: ASPirin 325 MG TAB PO ONE (21:43)
[2024-07-20] MEDS: ERGOCALCIFEROL 50,000 UNIT(1.25MG) CAP PO SCH (21:43)
[2024-07-21] VITALS (7 sets, daily range): BP systolic 92–145; BP diastolic 48–89; PULSE 61–78; RESP 17–18; TEMP 97.5–99.1; O2SAT 96–98
[2024-07-21 07:25] LABS: Basophils # (auto) 0 10 ^3/uL (0-0.2); Basophils % (auto) 0.5 % (0.0-2.0); Eosinophils # (auto) 0.1 10 ^3/uL (0-0.8); Eosinophils % (auto) 1.7 % (0.0-7.0); Hemoglobin 13.8 g/dL (12.2-16.2); Lymphocytes # (auto) 0.8 10 ^3/uL (0.4-5.4); Lymphocytes % (auto) 24.8 % (10.0-50.0); Mean Corpuscular Hgb Conc. 34.6 g/dL (32.0-36.0); Mean Corpuscular Volume 95.4 fL (80.0-100.0); Monocytes # (auto) 0.2 10 ^3/uL (0-1.3); Monocytes % (auto) 5.8 % (0.0-12.0); Neutrophils # (auto) 2.2 10 ^3/uL (1.6-8.6); Neutrophils % (auto) 67.2 % (37.0-80.0); Nucleated Red Blood Cells % 0.1 %; Red Cell Distribution Width 16.3 % (11.8-14.3); White Blood Cell 3.3 10^3/uL (4.4-10.8)
[2024-07-21 07:39] LABS: Albumin 4.1 g/dL (3.2-4.8); Alkaline Phosphatase 83 U/L (46-116); Anion Gap 10 (5-15); BUN/Creatinine Ratio 12.7 (10.0-20.0); Bilirubin, Total 0.7 mg/dL (0.2-1.0); Blood Urea Nitrogen 10 mg/dL (9-23); Calcium 9.7 mg/dL (8.7-10.4); Carbon Dioxide 28 mmol/L (20-31); Chloride 105 mmol/L (98-107); Glucose 93 mg/dL (74-106); Magnesium 2.3 mg/dL (1.6-2.6); Phosphorus 4.1 mg/dL (2.4-5.1); Potassium 3.6 mmol/L (3.5-5.1); Sodium 143 mmol/L (136-145); Total Protein 6.7 g/dL (5.7-8.2)
[2024-07-21 07:40] LABS: Platelet Count (auto) 79 10^3/uL (140-450)
[2024-07-21 07:47] LABS: Alanine Aminotransferase 113 U/L (7-40); Aspartate Aminotransferase 104 U/L (13-40)
[2024-07-21] MEDS: CYANOCOBALAMIN (B-12) 1000 MCG/1 ML VIAL IM ONE (08:35)
--- NOTE | 2024-07-21 08:38 | ECG ---
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
[2024-07-21] MEDS: chlordiazePOXIDE HCL 25 MG CAP PO SCH (09:45)
[2024-07-21] MEDS: ASPirin 81 mg TAB PO SCH (09:45)
[2024-07-21] MEDS: FOLIC ACID 1 MG TAB PO SCH (09:46)
[2024-07-21] MEDS: ENOXAPARIN SOD 40 MG/0.4 ML SYRINGE SC SCH (09:46)
[2024-07-21] MEDS: MULTIPLE VITAMIN TAB PO SCH (09:47)
[2024-07-21] MEDS: MAGNESIUM OXIDE 400 MG TAB PO SCH (09:47)
[2024-07-21] MEDS ORDERED: THIAMINE HCL 100 MG TAB PO SCH (10:00)
[2024-07-21] MEDS ORDERED: CHOLECALCIFEROL (VITD3) 1,000UNIT=25mCg TAB PO SCH (10:00)
--- NOTE | 2024-07-21 15:05 | DVHINCON2 ---
Date of Service if different f: Jul 21, 2024 Time of Service: 15:00 Consultation ([facility]) Labs Laboratory Tests Test 07/19/24 05:37 07/19/24 13:39 07/20/24 06:52 07/20/24 19:41 Salicylates Level < 3.0 mg/dL (-30) Acetaminophen Level < 2.0 UG/ML (10.0-20.0) Plasma/Serum Blood Alcohol 33.3 mg/dL (<10) Urine Opiates Screen Neg (NEGATIVE) Urine Fentanyl Screen Neg (NEGATIVE) Urine Barbiturates Screen Neg (NEGATIVE) Urine Phencyclidine Screen Neg (NEGATIVE) Urine Amphetamines Screen Neg (NEGATIVE) Urine Benzodiazepines Screen Neg (NEGATIVE) Urine Cocaine Screen Neg (NEGATIVE) Urine Cannabinoids Screen Neg (NEGATIVE) Hemoglobin A1c 5.3 % A1C (<5.7) Vitamin B12 Level 349 pg/mL (211-911) Vitamin D 25-Hydroxy 9.1 ng/mL (30.0-100) Folic Acid (LAB) 19.59 ng/mL (>5.38) Thyroid Stimulating Hormone (TSH) 23.72 uIU/mL (0.55-4.78) Prothrombin Time 11.0 sec (9.3-11.8) Prothromb Time International Ratio 1.04 (0.9-1.15) Activated Partial Thromboplast Time 26.5 SEC (24.5-34.5) Troponin I High Sensitivity < 3 ng/L (</=34) B-Type Natriuretic Peptide 28.61 pg/mL (0-100) Free Thyroxine (T4) Calculated 0.89 ng/dL (0.89-1.76) Total Triiodothyronine 1.11 ng/mL (0.60-1.81) Test 07/21/24 06:51 White Blood Count 3.3 10^3/uL (4.4-10.8) Red Blood Count 4.20 10^6/uL (4.0-5.20) Hemoglobin 13.8 g/dL (12.2-16.2) Hematocrit 40.0 % (36.0-46.0) Mean Corpuscular Volume 95.4 fL (80.0-100.0) Mean Corpuscular Hemoglobin 33.0 pg (28.0-32.0) Mean Corpuscular Hemoglobin Concent 34.6 g/dL (32.0-36.0) Red Cell Distribution Width 16.3 % (11.8-14.3) Platelet Count 79 10^3/uL (140-450) Mean Platelet Volume 9.0 fL (6.9-10.8) Neutrophils (%) (Auto) 67.2 % (37.0-80.0) Lymphocytes (%) (Auto) 24.8 % (10.0-50.0) Monocytes (%) (Auto) 5.8 % (0.0-12.0) Eosinophils (%) (Auto) 1.7 % (0.0-7.0) Basophils (%) (Auto) 0.5 % (0.0-2.0) Neutrophils # (Auto) 2.2 10 ^3/uL (1.6-8.6) Lymphocytes # (Auto) 0.8 10 ^3/uL (0.4-5.4) Monocytes # (Auto) 0.2 10 ^3/uL (0-1.3) Eosinophils # (Auto) 0.1 10 ^3/uL (0-0.8) Basophils # (Auto) 0 10 ^3/uL (0-0.2) Nucleated Red Blood Cells 0.1 % Sodium Level 143 mmol/L (136-145) Potassium Level 3.6 mmol/L (3.5-5.1) Chloride Level 105 mmol/L (98-107) Carbon Dioxide Level 28 mmol/L (20-31) Anion Gap 10 (5-15) Blood Urea Nitrogen 10 mg/dL (9-23) Creatinine 0.79 mg/dL (0.550-1.02) Glomerular Filtration Rate Calc 86 mL/min (>90) BUN/Creatinine Ratio 12.7 (10.0-20.0) Serum Glucose 93 mg/dL (74-106) Calcium Level 9.7 mg/dL (8.7-10.4) Phosphorus Level 4.1 mg/dL (2.4-5.1) Magnesium Level 2.3 mg/dL (1.6-2.6) Total Bilirubin 0.7 mg/dL (0.2-1.0) Aspartate Amino Transf (AST/SGOT) 104 U/L (13-40) Alanine Aminotransferase (ALT/SGPT) 113 U/L (7-40) Alkaline Phosphatase 83 U/L (46-116) Total Protein 6.7 g/dL (5.7-8.2) Albumin 4.1 g/dL (3.2-4.8) Vitals Vital Signs Date Time Temp Pulse Resp B/P (MAP) Pulse Ox O2 Delivery O2 Flow Rate FiO2 07/21/24 13:00 97.6 68 17 139/77 (97) 98 97.6 07/21/24 08:00 Room Air* 0 21 Current medications Current Medications Medications Dose Ordered Sig/Bill Route Start Time Stop Time Status Last Admin Dose Admin Chlordiazepoxide HCl 25 mg Q12HR PO 07/21/24 10:00 07/21/24 22:01 07/21/24 09:45 25 MG Chlordiazepoxide HCl 25 mg QAM PO 07/22/24 07:00 07/22/24 07:01 Lorazepam 1 mg Q2HPRN PRN IV 07/19/24 07:45 07/20/24 12:43 1 MG Acetaminophen/ Hydrocodone Bitart 1 tab Q4HP PRN PO 07/19/24 09:15 Ondansetron HCl 4 mg Q4HP PRN IV 07/19/24 09:15 Docusate Sodium 100 mg BIDPRN PRN PO 07/19/24 09:15 Lorazepam 1 mg Q4H IV 07/20/24 10:00 07/21/24 13:44 1 MG Folic Acid 1 mg DAILY PO 07/21/24 10:00 Hold 07/21/24 09:46 1 MG Multivitamins 1 tab DAILY PO 07/21/24 10:00 Hold 07/21/24 09:47 1 TAB Magnesium Oxide 400 mg DAILY PO 07/21/24 10:00 Hold 07/21/24 09:47 400 MG Thiamine HCl 100 mg DAILY PO 07/21/24 10:00 Hold Enoxaparin Sodium 40 mg DAILY SC 07/21/24 10:00 07/21/24 09:46 40 MG Aspirin 81 mg DAILY PO 07/21/24 10:00 07/21/24 09:45 81 MG Folic Acid 1 mg/ Multivitamins 10 ml/Magnesium Sulfate 8 meq/ Thiamine HCl 100 mg/Dextrose 1,013.2 ml @ 125.001 mls/hr DAILY@1800 INJ 07/21/24 18:00 Ergocalciferol 50,000 unit Q7D PO 07/20/24 19:00 07/20/24 21:43 50,000 UNIT PSYCHIATRY CONSULT INITIAL EVALUATION ID/CC: Per primary team, "This is a 58-year-old female with past medical history of chronic alcoholism who presented to the ER with a chief complaint of dizziness for a day. Patient reports that her and kids abandoned her and moved to a new house, therefore the patient relapsed after couple of years and has been drinking 1 bottle of wine every day for the past 2 weeks. 07/19 morning patient woke up and the room was spinning, denies any fall or trauma. Reports that her last drink was on 07/19. Systemic ospina, patient reports chills, and resting tremors of hands and generalized weakness, diarrhea for the past 6 days, nonbloody but denies fever. Patient has been also experiencing chest pain, pressure type, diffusely in chest, nonradiating, intermittently for the past couple of days." REASON FOR CONSULT: Depression HPI: Pt able to give her name, says she is in [facility] for alcohol withdrawals, has been there 3 days. Pt provides date 07/21/2024. Pt says her won a settlement, and after, he left her about a year ago. Her 24yo dtr and 4 yo grandson left to join him about 1 month ago. Prior to all this, pt had been sober 4 years. She started drinking again last December, off and on. Recently, she has been drinking a bottle of wine daily for about a week. Her last drink was yesterday morning. Pt reports h/o tremors, extreme anxiety, in the setting of alcohol withdrawal. Last night, she felt lightheaded, and felt the room spinning, so called the paramedics. Currently, pt cannot say if she is feeling any better. Currently, pt denies SI, describes mood as apathetic. Pt wants to live for her daughter and grandchild. Pt wants instant relief and its just not coming. Pt has discussed getting on an antidepressant in the past, but does not take them. She is not a proponent of pharmaceuticals. She prefers to use herbs and supplements. Discussed that some can be hepatotoxic, so she should seek the care of a trained provider. Currently, pt living on her savings. She was previously in school. PSYCHIATRIC HISTORY: DIAGNOSIS: History of depression; alcohol use disorder. ADMISSIONS: Reports prior admission about 10 years ago. Pt denies prior long- term rehab. In 2019, was in an IOP for substance use, which was helpful. MEDICATION TRIALS: Celexa only. Did not take consistently, cannot comment on benefit or SE. Has never been on MAT. OUTPATIENT CARE: Reports prior care with a psychiatrist for depression. THERAPY: SI/SELF-INJURY/SUICIDE ATTEMPT: Denies prior SI, SIB or SA. No access to firearms. SUBSTANCE USE: Denies drug use, including cannabis, no opiates. RELEVANT MEDICAL HISTORY: Denies any. ALLERGIES: Denies any. MENTAL STATUS EXAMINATION: The patient is a 59-year-old woman who presents as calm and cooperative. She demonstrates low energy, a blunted affect, and reports feeling apathetic. Speech is normal in rate and tone. She is oriented to person and date. Thought processes are linear and goal-directed, and there is no evidence of psychosis, hallucinations, or delusional thinking. Insight is fair, judgment is intact. Mild irritability is noted during the interview, though she remains appropriate throughout. Denies suicidal or homicidal ideation at present. Cognition appears grossly intact. DIAGNOSIS: Alcohol Use Disorder, severe, in early remission (currently detoxing) Depressive Disorder, not otherwise specified ASSESSMENT: This is a 59-year-old woman with a history of alcohol use disorder and depressive symptoms who presents following decompensation due to psychosocial stressors, including the recent loss of family support and housing instability. While she endorses apathy, low energy, and difficulty coping, she does not currently meet full diagnostic criteria for Major Depressive Disorder, as her symptoms are contextual, fluctuating, and not pervasive or enduring. She denies suicidal ideation, though is at increased risk in the setting of alcohol intoxication and withdrawal. Her alcohol use pattern (a bottle of wine daily for the past week, with prior prolonged sobriety) and acute withdrawal necessitated inpatient detox but does not currently meet criteria for 5150 hold or inpatient psychiatric admission. She reports reluctance toward antidepressant use and prefers non-pharmacological approaches. Notably, she has tried Celexa in the past but was non-adherent and unable to assess efficacy or side effects. She also expresses interest in herbal alternatives, which may pose hepatotoxic risk, especially post-alcohol use, and should be managed by a qualified provider. RECOMMENDATIONS 1. Psychiatric Admission: Not indicated at this time. Patient does not meet criteria for 5150 or inpatient psychiatric hospitalization. 2. Pharmacologic: Initiate Gabapentin 300 mg TID, titrate as tolerated and per clinical response. Can target symptoms of anxiety, insomnia, and cravings in the context of alcohol withdrawal and mood symptoms. 3. Antidepressants: Patient currently declines initiation of SSRI/SNRI; continue psychoeducation around risks/benefits. Respect patient preference while continuing to assess for emergence of depressive symptoms. 4. Substance Use Treatment: Refer to substance use treatment services aligned with her insurance. A structured outpatient program or relapse prevention support would be appropriate. 5. Safety Planning: Discussed that risk of suicide may be heightened during periods of alcohol intoxication, even in the absence of current SI. Recommend close monitoring and supportive environment. 6. Social Support: Encourage re-engagement with supportive services and psychosocial supports, including housing, therapy, and potential return to school if appropriate. 7. Follow-Up: Recommend psychiatric follow-up post-detox and consideration of MAT for alcohol use disorder if patient becomes amenable. MONIQUE JOHNSON MD Jul 21, 2024 15:05
--- NOTE | 2024-07-21 16:49 | DVHPNRES ---
Progress Note Date Seen: Jul 21, 2024 Resident Creating Document: ANATOLIY LABOY RESIDENT Medical Necessity Reason Pt with a Central, PICC or Fol: No Subjective Review of Systems his is a 58-year-old female with past medical history of chronic alcoholism who presented to the ER with a chief complaint of dizziness for a day. Patient reports that her and kids abandoned her and moved to a new house, therefore the patient relapsed after couple of years and has been drinking 1 bottle of wine every day for the past 2 weeks. 07/19 morning patient woke up and the room was spinning, denies any fall or trauma. Reports that her last drink was on 07/19. Systemic ospina, patient reports chills, and resting tremors of hands and generalized weakness, diarrhea for the past 6 days, nonbloody but denies fever. Patient has been also experiencing chest pain, pressure type, diffusely in chest, nonradiating, intermittently for the past couple of days. On arrival to the ER. EKG completed, showed NSR. Past medical history: Chronic alcoholism Past surgical history: Denies PCP: None, patient last saw 1 year ago Home medications: None 07/20-Patient seen and examined at the bedside. Reports chest pain. Repeat EKG pending. 07/21-patient seen and examined. EKG and troponin unremarkable. BNP unremarkable. Tele psych consulted-recommended gabapentin. Objective vital signs Vital Sign Date Time Temp Pulse Resp B/P (MAP) Pulse Ox O2 Delivery O2 Flow Rate FiO2 07/21/24 13:00 97.6 68 17 139/77 (97) 98 97.6 07/21/24 08:00 Room Air* 0 21 Total Intake and Output 07/20/24 07/20/24 07/21/24 15:00 23:00 07:00 Intake Total 600 ml 300 ml Balance 600 ml 300 ml medications Current Medications Medications Dose Ordered Sig/Bill Route Start Time Stop Time Status Last Admin Dose Admin Chlordiazepoxide HCl 25 mg Q12HR PO 07/21/24 10:00 07/21/24 22:01 07/21/24 09:45 25 MG Chlordiazepoxide HCl 25 mg QAM PO 07/22/24 07:00 07/22/24 07:01 Lorazepam 1 mg Q2HPRN PRN IV 07/19/24 07:45 07/20/24 12:43 1 MG Acetaminophen/ Hydrocodone Bitart 1 tab Q4HP PRN PO 07/19/24 09:15 Ondansetron HCl 4 mg Q4HP PRN IV 07/19/24 09:15 Docusate Sodium 100 mg BIDPRN PRN PO 07/19/24 09:15 Lorazepam 1 mg Q4H IV 07/20/24 10:00 07/21/24 13:44 1 MG Folic Acid 1 mg DAILY PO 07/21/24 10:00 Hold 07/21/24 09:46 1 MG Multivitamins 1 tab DAILY PO 07/21/24 10:00 Hold 07/21/24 09:47 1 TAB Magnesium Oxide 400 mg DAILY PO 07/21/24 10:00 Hold 07/21/24 09:47 400 MG Thiamine HCl 100 mg DAILY PO 07/21/24 10:00 Hold Enoxaparin Sodium 40 mg DAILY SC 07/21/24 10:00 07/21/24 09:46 40 MG Aspirin 81 mg DAILY PO 07/21/24 10:00 07/21/24 09:45 81 MG Folic Acid 1 mg/ Multivitamins 10 ml/Magnesium Sulfate 8 meq/ Thiamine HCl 100 mg/Dextrose 1,013.2 ml @ 125.001 mls/hr DAILY@1800 INJ 07/21/24 18:00 Ergocalciferol 50,000 unit Q7D PO 07/20/24 19:00 07/20/24 21:43 50,000 UNIT Examination Patient lying in bed, in no acute distress. Patient has resting tremors. Mood is sad. No HI/SI. General: Well-built, afebrile, palor, mucosae are moist Cardiovascular: Regular S1 and S2. No murmurs, gallops or rubs. No JVD elevation. No pedal edema Respiratory: Normal B/L air entry on room air. Clear lung sounds on auscultation Abdomen: Soft, nontender, nondistended, normoactive bowel sounds, no rebound tenderness, no organomegaly, no masses Genitourinary: Deferred MSK/skin: Mobilizes 4 limbs. Skin is dry and warm Neurological: No motor, no sensitive deficits, normal speech. Pupils are isocoric and reactive. Psych/Mental Status: A/Ox3 laboratory and microbiology Laboratory Tests 07/21/24 06:51 Test 07/21/24 06:51 Range/Units Serum Glucose 93 74-106 mg/dL Labs and/or images reviewed: Labs reviewed by me, Image(s) reviewed by me Problem List/Assessment/Plan Problem List/Assessment/Plan Acute alcoholic intoxication Alcoholic withdrawal-CIWA score less than 8 Chronic alcoholism, relapse after 2 years Banana bag daily Thiamine/folic acid supplemented [facility] protocol, Librium taper initiated Tele psych-consultation pending Chest pain: Rule out ACS Aspirin 325 administered Atorvastatin can not be initiated given transaminitis EKG repeat pending, EKG on arrival showed NSR Telemetry unit Troponin pending Transaminitis likely secondary to alcoholic steatosis Hepatitis panel pending Thrombocytopenia likely due to alcoholism Monitor Vitamin-D deficiency Supplemented child and family services specialist consulted for resources for rehab Lovenox 40 mg sc daily Plan discussed with patient in which all questions have been answered Goals of care discussed for more than 20 minutes, full code status Case discussed with Dr. Carlson Plan discussed with: Patient My Orders My Orders Orders - ANATOLIY LABOY Procedure Category Date Status Time Urinalysis LAB 07/20/24 Logged 18:53 Drug Screen LAB 07/20/24 Logged 18:53 Hepatitis B Surface LAB 07/20/24 In Process Antibody 18:56 Hepatitis B Surface LAB 07/20/24 In Process Antigen 18:56 Hepatitis C Antibody LAB 07/20/24 In Process 18:56 Transfer Orders XFER 07/20/24 Transmitted 20:09 Enoxaparin Sodium PHA 07/21/24 In Process (Lovenox) 10:00 Aspirin Tablet PHA 07/21/24 In Process 10:00 Folic Acid... PHA 07/21/24 In Process 18:00 Ergocalciferol PHA 07/20/24 In Process (Vitamin D 50,000 19:00 Full Liq Diet DIET 07/21/24 Transmitted [place] Program Technician ORDERS 07/20/24 Transmitted 20:14 Transfer Orders XFER 07/20/24 Transmitted 20:14 * Client Experience Manager CONS 07/21/24 Transmitted Consult Soc Telemed Psych CONS 07/21/24 Transmitted Consult 11:54 Communication Order ORDERS 07/21/24 Transmitted 11:54 Date of Service: Jul 21, 2024 Billing Provider: PEARL CARLSON MD Common Visit Codes: [id number] INP/OBS CARE(HIGH) ANATOLIY LABOY RESIDENT Jul 21, 2024 16:49 PEARL CARLSON MD Jul 21, 2024 21:35
[2024-07-21] MEDS: FOLIC ACID 1 MG, MULTIPLE VITAMIN 10 ML, MAGNESIUM SULF SDV 50% 8 MEQ, THIAMINE INJ 100... INJ SCH (18:36)
[2024-07-22] VITALS (7 sets, daily range): BP systolic 0–131; BP diastolic 61–93; PULSE 18–108; RESP 16–18; TEMP 97.7–98.1; O2SAT 97–98
[2024-07-22] MEDS: chlordiazePOXIDE HCL 25 MG CAP PO SCH (06:00)
[2024-07-22 07:59] LABS: Anion Gap 9 (5-15); Calcium 9.7 mg/dL (8.7-10.4); Carbon Dioxide 28 mmol/L (20-31); Chloride 105 mmol/L (98-107); Sodium 142 mmol/L (136-145)
[2024-07-22 08:00] LABS: Potassium 3.5 mmol/L (3.5-5.1)
[2024-07-22 08:05] LABS: BUN/Creatinine Ratio 12.5 (10.0-20.0); Blood Urea Nitrogen 10 mg/dL (9-23); Glucose 108 mg/dL (74-106)
[2024-07-22] MEDS: GABAPENTIN 300 MG CAP PO ONE (09:40)
[2024-07-22] MEDS: DOCUSATE SOD 100 MG CAP PO PRN (09:41)
[2024-07-22] MEDS: POTASSIUM EFFERVESENT TAB 25 MEQ PO ONE (10:20)
[2024-07-22] MEDS: POTASSIUM EFFERVESENT TAB 25 MEQ ONE (10:21)
[2024-07-22 10:49] LABS: Hepatitis B Surface Antibody Negative (Negative)
[2024-07-22 11:01] LABS: Hepatitis B Surface Antigen Negative (Negative)
[2024-07-22 11:23] LABS: Hepatitis C Antibody Negative (Negative)
--- NOTE | 2024-07-22 15:50 | DVHPNRES ---
Progress Note Date Seen: Jul 22, 2024 Resident Creating Document: ANATOLIY LABOY RESIDENT Medical Necessity Reason Pt with a Central, PICC or Fol: No Subjective Review of Systems his is a 58-year-old female with past medical history of chronic alcoholism who presented to the ER with a chief complaint of dizziness for a day. Patient reports that her and kids abandoned her and moved to a new house, therefore the patient relapsed after couple of years and has been drinking 1 bottle of wine every day for the past 2 weeks. 07/19 morning patient woke up and the room was spinning, denies any fall or trauma. Reports that her last drink was on 07/19. Systemic ospina, patient reports chills, and resting tremors of hands and generalized weakness, diarrhea for the past 6 days, nonbloody but denies fever. Patient has been also experiencing chest pain, pressure type, diffusely in chest, nonradiating, intermittently for the past couple of days. On arrival to the ER. EKG completed, showed NSR. Past medical history: Chronic alcoholism Past surgical history: Denies PCP: None, patient last saw 1 year ago Home medications: None 07/20-Patient seen and examined at the bedside. Reports chest pain. Repeat EKG pending. 07/21-patient seen and examined. EKG and troponin unremarkable. BNP unremarkable. Tele psych consulted-recommended gabapentin. 07/22 -patient seen and examined feels dizziness. Orthostatic vitals pending. Started gabapentin. Objective vital signs Vital Sign Date Time Temp Pulse Resp B/P (MAP) Pulse Ox O2 Delivery O2 Flow Rate FiO2 07/22/24 12:41 98.1 61 16 111/61 (78) 98 98.1 07/22/24 08:00 Room Air* 0 21 Total Intake and Output 07/21/24 07/21/24 07/22/24 14:59 22:59 06:59 Intake Total 900 ml 550 ml Balance 900 ml 550 ml medications Current Medications Medications Dose Ordered Sig/Bill Route Start Time Stop Time Status Last Admin Dose Admin Lorazepam 1 mg Q2HPRN PRN IV 07/19/24 07:45 07/20/24 12:43 1 MG Acetaminophen/ Hydrocodone Bitart 1 tab Q4HP PRN PO 07/19/24 09:15 Ondansetron HCl 4 mg Q4HP PRN IV 07/19/24 09:15 Docusate Sodium 100 mg BIDPRN PRN PO 07/19/24 09:15 07/22/24 09:41 100 MG Enoxaparin Sodium 40 mg DAILY SC 07/21/24 10:00 07/22/24 09:41 40 MG Aspirin 81 mg DAILY PO 07/21/24 10:00 07/22/24 09:40 81 MG Folic Acid 1 mg/ Multivitamins 10 ml/Magnesium Sulfate 8 meq/ Thiamine HCl 100 mg/Dextrose 1,013.2 ml @ 125.001 mls/hr DAILY@1800 INJ 07/21/24 18:00 07/21/24 18:36 125.001 MLS/HR Ergocalciferol 50,000 unit Q7D PO 07/20/24 19:00 07/20/24 21:43 50,000 UNIT Gabapentin 300 mg TID PO 07/22/24 14:00 Examination Patient lying in bed, in no acute distress. Patient has resting tremors. Mood is sad. No HI/SI. General: Well-built, afebrile, palor, mucosae are moist Cardiovascular: Regular S1 and S2. No murmurs, gallops or rubs. No JVD elevation. No pedal edema Respiratory: Normal B/L air entry on room air. Clear lung sounds on auscultation Abdomen: Soft, nontender, nondistended, normoactive bowel sounds, no rebound tenderness, no organomegaly, no masses Genitourinary: Deferred MSK/skin: Mobilizes 4 limbs. Skin is dry and warm Neurological: No motor, no sensitive deficits, normal speech. Pupils are isocoric and reactive. Psych/Mental Status: A/Ox3 laboratory and microbiology Laboratory Tests 07/22/24 07:15 07/21/24 06:51 Test 07/22/24 07:15 Range/Units Serum Glucose 108 H 74-106 mg/dL Labs and/or images reviewed: Labs reviewed by me, Image(s) reviewed by me Problem List/Assessment/Plan Problem List/Assessment/Plan Acute alcoholic intoxication Alcoholic withdrawal-CIWA score less than 8 Chronic alcoholism, relapse after 2 years Banana bag daily Thiamine/folic acid supplemented CIWA protocol, Librium taper initiated Tele psych-consultation -started gabapentin 300 mg TID Chest pain: Ruled out ACS Aspirin 325 administered Atorvastatin can not be initiated given transaminitis EKG repeat pending, EKG on arrival showed NSR Telemetry unit Troponin <3 Transaminitis likely secondary to alcoholic steatosis Hepatitis panel negative Thrombocytopenia likely due to alcoholism Monitor Vitamin-D deficiency Supplemented environmental services lead consulted for resources for rehab Lovenox 40 mg sc daily Plan discussed with patient in which all questions have been answered Goals of care discussed for more than 20 minutes, full code status Case discussed with Dr. Carlson Plan discussed with: Patient My Orders My Orders Orders - ANATOLIY LABOY Procedure Category Date Status Time Gabapentin Capsule PHA 07/22/24 In Process (Neurontin Capsule) 14:00 Pt Request For Service PT 07/22/24 Logged 09:16 Date of Service: Jul 22, 2024 Billing Provider: PEARL CARLSON MD Common Visit Codes: [id number] INP/OBS CARE(HIGH) ANATOLIY LABOY RESIDENT Jul 22, 2024 15:50 PEARL CARLSON MD Jul 22, 2024 22:14
[2024-07-22] MEDS: GABAPENTIN 300 MG CAP PO SCH (16:34)
[2024-07-23] VITALS (8 sets, daily range): BP systolic 115–149; BP diastolic 71–95; PULSE 51–88; RESP 16–18; TEMP 97.4–98.1; O2SAT 97–99
[2024-07-23 06:32] LABS: Chloride 105 mmol/L (98-107); Potassium 3.5 mmol/L (3.5-5.1); Sodium 141 mmol/L (136-145)
[2024-07-23 06:33] LABS: Anion Gap 10 (5-15); Carbon Dioxide 26 mmol/L (20-31)
[2024-07-23 06:38] LABS: BUN/Creatinine Ratio 10.8 (10.0-20.0); Blood Urea Nitrogen 8 mg/dL (9-23); Glucose 117 mg/dL (74-106)
[2024-07-23] MEDS: POTASSIUM CHL 20 Meq TABLET PO ONE (10:15)
--- NOTE | 2024-07-23 14:08 | DVH ---
EXAM: CT HEAD WITHOUT CONTRAST INDICATION: Persistent dizziness, Rule out mass TECHNIQUE: CT of the head without intravenous contrast. Radiation Dose : 1. Head: CT Dose: CTDI volume is 52 mGy. Dose-length product is 861 mGy*cm The dose indicators for CT are the volume Computed Tomography (CT) Dose Index (CTDIvol) and the Dose Length Product (DLP), and are measured in units of mGy and mGy-cm, respectively. These indicators are not patient dose, but values generated from the CT scanner acquisition factors. The report includes radiation exposure data for exposures received during this examination. COMPARISON: None FINDINGS: There is no evidence of acute intracranial hemorrhage, extra-axial collection, mass effect, midline s hift, herniation or hydrocephalus. The ventricles, sulci and cisterns are age appropriate. The vincent-white differentiation is intact. Patchy periventricular and subcortical white matter hypoattenuation is nonspecific but may be related to small vessel ischemic disease. The visualized paranasal sinuses and mastoid air cells are clear. The surrounding soft tissues and osseous structures are unremarkable. IMPRESSION: No acute intracranial abnormality. No mass effect identified Radiation optimization: All CT scans at this facility use at least one of these dose optimization esequiel hniques: automated exposure control mA and/or kV adjustment per patient size (includes targeted exam s where dose is matched to clinical indication) or iterative reconstruction.
--- NOTE | 2024-07-23 14:10 | DVH ---
Indication: Persistent dizziness Technique: Real-time ultrasound images of the neck vessels with vincent-scale, color and wave Doppler we re obtained. Comparison: None Findings: The following peak systolic velocities were recorded in cm/sec: Right internal carotid: 88 Right common carotid: 48 Right external carotid: 64 Right internal/common carotid ratio: 1.8 Left internal carotid: 72 Left common carotid: 46 Left external carotid: 66 Left internal/common carotid ratio: 1.6 Right vertebral artery: Patent with normal antegrade direction of flow. Left vertebral artery: Patent with normal antegrade direction of flow. Impression: 1. No hemodynamically significant stenosis by velocity criteria.
--- NOTE | 2024-07-23 17:22 | DVHPNRES ---
Progress Note Date Seen: Jul 23, 2024 Resident Creating Document: ANATOLIY LABOY RESIDENT Medical Necessity Reason Pt with a Central, PICC or Fol: No Subjective Review of Systems This is a 58-year-old female with past medical history of chronic alcoholism who presented to the ER with a chief complaint of dizziness for a day. Patient reports that her and kids abandoned her and moved to a new house, therefore the patient relapsed after couple of years and has been drinking 1 bottle of wine every day for the past 2 weeks. 07/19 morning patient woke up and the room was spinning, denies any fall or trauma. Reports that her last drink was on 07/19. Systemic ospina, patient reports chills, and resting tremors of hands and generalized weakness, diarrhea for the past 6 days, nonbloody but denies fever. Patient has been also experiencing chest pain, pressure type, diffusely in chest, nonradiating, intermittently for the past couple of days. On arrival to the ER. EKG completed, showed NSR. Past medical history: Chronic alcoholism Past surgical history: Denies PCP: None, patient last saw 1 year ago Home medications: None 07/20-Patient seen and examined at the bedside. Reports chest pain. Repeat EKG pending. 07/21-patient seen and examined. EKG and troponin unremarkable. BNP unremarkable. Tele psych consulted-recommended gabapentin. 07/22 -patient seen and examined feels dizziness. Orthostatic vitals pending. Started gabapentin. 07/23 patient is seen and examined. Head CT was unremarkable, carotid Doppler unremarkable Objective vital signs Vital Sign Date Time Temp Pulse Resp B/P (MAP) Pulse Ox O2 Delivery O2 Flow Rate FiO2 07/23/24 16:56 98.0 78 16 132/84 (100) 97 98.0 07/23/24 08:00 Room Air* 0 21 Total Intake and Output 07/22/24 07/22/24 07/23/24 15:00 23:00 07:00 Intake Total 850 ml 300 ml Balance 850 ml 300 ml medications Current Medications Medications Dose Ordered Sig/Bill Route Start Time Stop Time Status Last Admin Dose Admin Lorazepam 1 mg Q2HPRN PRN IV 07/19/24 07:45 07/23/24 16:00 1 MG Acetaminophen/ Hydrocodone Bitart 1 tab Q4HP PRN PO 07/19/24 09:15 Ondansetron HCl 4 mg Q4HP PRN IV 07/19/24 09:15 Docusate Sodium 100 mg BIDPRN PRN PO 07/19/24 09:15 07/22/24 09:41 100 MG Enoxaparin Sodium 40 mg DAILY SC 07/21/24 10:00 07/22/24 09:41 40 MG Aspirin 81 mg DAILY PO 07/21/24 10:00 07/22/24 09:40 81 MG Folic Acid 1 mg/ Multivitamins 10 ml/Magnesium Sulfate 8 meq/ Thiamine HCl 100 mg/Dextrose 1,013.2 ml @ 125.001 mls/hr DAILY@1800 INJ 07/21/24 18:00 07/22/24 17:55 125.001 MLS/HR Ergocalciferol 50,000 unit Q7D PO 07/20/24 19:00 07/20/24 21:43 50,000 UNIT Gabapentin 300 mg TID PO 07/22/24 14:00 07/23/24 13:10 300 MG Examination Patient lying in bed, in no acute distress. Patient has resting tremors. Mood is sad. No HI/SI. General: Well-built, afebrile, palor, mucosae are moist Cardiovascular: Regular S1 and S2. No murmurs, gallops or rubs. No JVD elevation. No pedal edema Respiratory: Normal B/L air entry on room air. Clear lung sounds on auscultation Abdomen: Soft, nontender, nondistended, normoactive bowel sounds, no rebound tenderness, no organomegaly, no masses Genitourinary: Deferred MSK/skin: Mobilizes 4 limbs. Skin is dry and warm Neurological: No motor, no sensitive deficits, normal speech. Pupils are isocoric and reactive. Psych/Mental Status: A/Ox3 laboratory and microbiology Laboratory Tests 07/23/24 05:29 07/21/24 06:51 Test 07/23/24 05:29 Range/Units Serum Glucose 117 H 74-106 mg/dL Labs and/or images reviewed: Labs reviewed by me, Image(s) reviewed by me Problem List/Assessment/Plan Problem List/Assessment/Plan Acute alcoholic intoxication Alcoholic withdrawal-CIWA score less than 8 Chronic alcoholism, relapse after 2 years Banana bag daily Thiamine/folic acid supplemented CIWA protocol, Librium taper initiated Tele psych-consultation -started gabapentin 300 mg TID Persistent dizziness Head CT was unremarkable, carotid Doppler unremarkable Chest pain: Ruled out ACS Aspirin 325 administered Atorvastatin can not be initiated given transaminitis EKG repeat pending, EKG on arrival showed NSR Telemetry unit Troponin <3 Transaminitis likely secondary to alcoholic steatosis Hepatitis panel negative Thrombocytopenia likely due to alcoholism Monitor Vitamin-D deficiency Supplemented consulting services associate consulted for resources for rehab Lovenox 40 mg sc daily Plan discussed with patient in which all questions have been answered Goals of care discussed for more than 20 minutes, full code status Case discussed with Dr. Carlson Plan discussed with: Patient My Orders My Orders Orders - ANATOLIY LABOY Procedure Category Date Status Time Orthostatic Vital ORDERS 07/23/24 Transmitted Signs 10:16 Stool Occult Blood LAB 07/23/24 Logged 10:16 Stool Wbc LAB 07/23/24 Logged 10:[address] 07/23/24 Resulted 12:48 Echo 2d Mode Cardiac US 07/23/24 Logged DOP 12:48 Carotid Duplx W Color US 07/23/24 Resulted DOP 12:48 Communication Order ORDERS 07/23/24 Transmitted 13:54 Date of Service: Jul 23, 2024 Billing Provider: PEARL CARLSON MD Common Visit Codes: [id number] INP/OBS CARE(HIGH) ANATOLIY LABOY RESIDENT Jul 23, 2024 17:22 PEARL CARLSON MD Jul 23, 2024 20:55
[2024-07-23] MEDS: ONDANSETRON HCL 4 MG/2 ML VIAL IV PRN (23:31)
[2024-07-24] VITALS (9 sets, daily range): BP systolic 102–143; BP diastolic 68–97; PULSE 51–91; RESP 16–20; TEMP 97.2–98.1; O2SAT 95–99
[2024-07-24] MEDS ORDERED: DIPHENOXYLATE W/ATROPINE 2.5 MG TAB PO PRN (12:30)
[2024-07-24] MEDS: MECLIZINE HCL 25 MG TAB PO ONE (14:09)
[2024-07-24] MEDS: DIPHENOXYLATE W/ATROPINE 2.5 MG TAB PO ONE (14:09)
--- NOTE | 2024-07-24 14:58 | DVH ---
MRI BRAIN HEAD WO CONTRAST INDICATION: r/o mass, persistent dizziness EXAM DATE: 07/24/2024 02:18 PM COMPARISON: None PROCEDURE: Using a 1.5 Jovanna scanner, multisequence multiplanar imaging of the brain was obtained. FINDINGS: The brainshows normal morphology and signal characteristics. No abnormal T2 hyperintensity, diffusion restriction, or susceptibility hypointensity is present. The ventricles are normal in size . The midline structures are intact. The major intracranial flow voids are present. The aerated space s are normal. The orbital contents and extracranial soft tissues appear normal. IMPRESSION: No acute abnormal MRI findings of the brain. No obvious masses are seen.
--- NOTE | 2024-07-24 16:24 | DVHPNRES ---
Progress Note Date Seen: Jul 24, 2024 Resident Creating Document: ANATOLIY LABOY RESIDENT Medical Necessity Reason Pt with a Central, PICC or Fol: No Subjective Review of Systems This is a 58-year-old female with past medical history of chronic alcoholism who presented to the ER with a chief complaint of dizziness for a day. Patient reports that her and kids abandoned her and moved to a new house, therefore the patient relapsed after couple of years and has been drinking 1 bottle of wine every day for the past 2 weeks. 07/19 morning patient woke up and the room was spinning, denies any fall or trauma. Reports that her last drink was on 07/19. Systemic ospina, patient reports chills, and resting tremors of hands and generalized weakness, diarrhea for the past 6 days, nonbloody but denies fever. Patient has been also experiencing chest pain, pressure type, diffusely in chest, nonradiating, intermittently for the past couple of days. On arrival to the ER. EKG completed, showed NSR. Past medical history: Chronic alcoholism Past surgical history: Denies PCP: None, patient last saw 1 year ago Home medications: None 07/20-Patient seen and examined at the bedside. Reports chest pain. Repeat EKG pending. 07/21-patient seen and examined. EKG and troponin unremarkable. BNP unremarkable. Tele psych consulted-recommended gabapentin. 07/22 -patient seen and examined feels dizziness. Orthostatic vitals pending. Started gabapentin. 07/23 patient is seen and examined. Head CT was unremarkable, carotid Doppler unremarkable 07/24-patient seen and examined. Persistent dizziness, MRI brain ordered which was unremarkable. Started meclizine. Reports diarrhea, stool occult and stool WBC negative, started Lomotil. Objective vital signs Vital Sign Date Time Temp Pulse Resp B/P (MAP) Pulse Ox O2 Delivery O2 Flow Rate FiO2 07/24/24 13:00 97.7 81 16 133/91 (105) 95 97.7 07/24/24 08:00 Room Air* 0 21 Total Intake and Output 07/23/24 07/23/24 07/24/24 15:00 23:00 07:00 Intake Total 1200 ml 400 ml Balance 1200 ml 400 ml medications Current Medications Medications Dose Ordered Sig/Bill Route Start Time Stop Time Status Last Admin Dose Admin Lorazepam 1 mg Q2HPRN PRN IV 07/19/24 07:45 07/24/24 14:08 1 MG Acetaminophen/ Hydrocodone Bitart 1 tab Q4HP PRN PO 07/19/24 09:15 Ondansetron HCl 4 mg Q4HP PRN IV 07/19/24 09:15 07/23/24 23:31 4 MG Docusate Sodium 100 mg BIDPRN PRN PO 07/19/24 09:15 07/22/24 09:41 100 MG Enoxaparin Sodium 40 mg DAILY SC 07/21/24 10:00 07/22/24 09:41 40 MG Aspirin 81 mg DAILY PO 07/21/24 10:00 07/22/24 09:40 81 MG Folic Acid 1 mg/ Multivitamins 10 ml/Magnesium Sulfate 8 meq/ Thiamine HCl 100 mg/Dextrose 1,013.2 ml @ 125.001 mls/hr DAILY@1800 INJ 07/21/24 18:00 07/23/24 18:31 125.001 MLS/HR Ergocalciferol 50,000 unit Q7D PO 07/20/24 19:00 07/20/24 21:43 50,000 UNIT Gabapentin 300 mg TID PO 07/22/24 14:00 07/24/24 14:09 300 MG Meclizine HCl 25 mg [id number] PRN PO 07/24/24 12:30 Diphenoxylate HCl/ Atropine 2.5 mg Q12HP PRN PO 07/24/24 12:30 Examination Patient lying in bed, in no acute distress. Patient has very mild resting tremors. Mood is sad. No HI/SI. General: Well-built, afebrile, palor, mucosae are moist Cardiovascular: Regular S1 and S2. No murmurs, gallops or rubs. No JVD elevation. No pedal edema Respiratory: Normal B/L air entry on room air. Clear lung sounds on auscultation Abdomen: Soft, nontender, nondistended, normoactive bowel sounds, no rebound tenderness, no organomegaly, no masses Genitourinary: Deferred MSK/skin: Mobilizes 4 limbs. Skin is dry and warm Neurological: No motor, no sensitive deficits, normal speech. Pupils are isocoric and reactive. Psych/Mental Status: A/Ox3 laboratory and microbiology Laboratory Tests 07/23/24 05:29 07/21/24 06:51 Test 07/23/24 05:29 Range/Units Serum Glucose 117 H 74-106 mg/dL Problem List/Assessment/Plan Problem List/Assessment/Plan Acute alcoholic intoxication Alcoholic withdrawal-CIWA score less than 8 Chronic alcoholism, relapse after 2 years Banana bag daily Thiamine/folic acid supplemented [facility] protocol, Librium taper initiated Tele psych-consultation -started gabapentin 300 mg TID Acute gastroenteritis, likely etiology infectious Stool occult, stool WBC negative Started Lomotil Persistent dizziness Head CT was unremarkable, carotid Doppler unremarkable MRI brain unremarkable Started meclizine 25 mg Follow up with the echocardiogram Chest pain: Ruled out ACS Aspirin 325 administered Atorvastatin can not be initiated given transaminitis EKG repeat pending, EKG on arrival showed NSR Telemetry unit Troponin <3 Transaminitis likely secondary to alcoholic steatosis Hepatitis panel negative Thrombocytopenia likely due to alcoholism Monitor Vitamin-D deficiency Supplemented information services manager consulted for resources for rehab Lovenox 40 mg sc daily Plan discussed with patient in which all questions have been answered Goals of care discussed for more than 20 minutes, full code status Case discussed with Dr. Carlson. Follow up with the echocardiogram Plan discussed with: Patient My Orders My Orders Orders - ANATOLIY LABOY Procedure Category Date Status Time Mechanical Soft Diet DIET 07/23/24 Transmitted Dinner Meclizine Tablet PHA 07/24/24 In Process (Antivert Tablet) 12:30 Diphenoxylate/Atropine PHA 07/24/24 In Process Tablet (Lomotil T 12:30 Brain Head Wo Contrast MRI 07/24/24 Resulted 12:20 Dietary Evaluation Review Comments: Continue current POC Expected Outcomes/Goals: to meet 75% estimated needs FU 5-7 days Date of Service: Jul 24, 2024 Billing Provider: PEARL CARLSON MD Common Visit Codes: [id number] INP/OBS CARE(HIGH) ANATOLIY LABOY RESIDENT Jul 24, 2024 16:24 PEARL CARLSON MD Jul 25, 2024 22:11
[2024-07-24] MEDS: POTASSIUM CHL 20 Meq TABLET PO ONE (17:25)
[2024-07-25] VITALS (9 sets, daily range): BP systolic 0–138; BP diastolic 60–84; PULSE 58–92; RESP 18–20; TEMP 97.4–98.8; O2SAT 94–99
[2024-07-25] MEDS: MECLIZINE HCL 25 MG TAB PO PRN (08:11)
--- NOTE | 2024-07-25 15:36 | DVHPNRES ---
Progress Note Date Seen: Jul 25, 2024 Resident Creating Document: RODOLFO STUART RESIDENT Medical Necessity Reason Pt with a Central, PICC or Fol: No Subjective Review of Systems patient seen and examined. Persistent dizziness, MRI brain ordered which was unremarkable. Started meclizine. Reports diarrhea, stool occult and stool WBC negative, started Lomotil. Objective vital signs Vital Sign Date Time Temp Pulse Resp B/P (MAP) Pulse Ox O2 Delivery O2 Flow Rate FiO2 07/25/24 12:31 97.9 82 20 138/84 (102) 98 97.9 07/25/24 08:25 Room Air* 0 21 Total Intake and Output 07/24/24 07/24/24 07/25/24 15:00 23:00 07:00 Intake Total 499 ml 420 ml Balance 499 ml 420 ml medications Current Medications Medications Dose Ordered Sig/Bill Route Start Time Stop Time Status Last Admin Dose Admin Lorazepam 1 mg Q2HPRN PRN IV 07/19/24 07:45 07/25/24 10:34 1 MG Acetaminophen/ Hydrocodone Bitart 1 tab Q4HP PRN PO 07/19/24 09:15 Ondansetron HCl 4 mg Q4HP PRN IV 07/19/24 09:15 07/23/24 23:31 4 MG Docusate Sodium 100 mg BIDPRN PRN PO 07/19/24 09:15 07/22/24 09:41 100 MG Enoxaparin Sodium 40 mg DAILY SC 07/21/24 10:00 07/25/24 09:40 40 MG Aspirin 81 mg DAILY PO 07/21/24 10:00 07/25/24 09:39 81 MG Ergocalciferol 50,000 unit Q7D PO 07/20/24 19:00 07/20/24 21:43 50,000 UNIT Gabapentin 300 mg TID PO 07/22/24 14:00 07/25/24 14:18 300 MG Meclizine HCl 25 mg [id number] PRN PO 07/24/24 12:30 07/25/24 08:11 25 MG Diphenoxylate HCl/ Atropine 2.5 mg Q12HP PRN PO 07/24/24 12:30 Folic Acid 1 mg DAILY PO 07/26/24 10:00 Multivitamins 1 tab DAILY PO 07/26/24 10:00 Magnesium Oxide 400 mg DAILY PO 07/26/24 10:00 Thiamine HCl 100 mg DAILY PO 07/26/24 10:00 Examination General: Well-built, afebrile, palor, mucosae are moist Cardiovascular: Regular S1 and S2. No murmurs, gallops or rubs. No JVD elevation. No pedal edema Respiratory: Normal B/L air entry on room air. Clear lung sounds on auscultation Abdomen: Soft, nontender, nondistended, normoactive bowel sounds, no rebound tenderness, no organomegaly, no masses Genitourinary: Deferred MSK/skin: Mobilizes 4 limbs. Skin is dry and warm Neurological: No motor, no sensitive deficits, normal speech. Pupils are isocoric and reactive. Psych/Mental Status: A/Ox3 laboratory and microbiology Laboratory Tests 07/23/24 05:29 07/21/24 06:51 Test 07/23/24 05:29 Range/Units Serum Glucose 117 H 74-106 mg/dL Problem List/Assessment/Plan Problem List/Assessment/Plan Acute alcoholic intoxication Alcoholic withdrawal-CIWA score less than 8 Chronic alcoholism, relapse after 2 years Banana bag daily Thiamine/folic acid supplemented CIWA protocol, Librium taper initiated Tele psych-consultation -started gabapentin 300 mg TID Acute gastroenteritis, likely etiology infectious Stool occult, stool WBC negative Started Lomotil Persistent dizziness Head CT was unremarkable, carotid Doppler unremarkable MRI brain unremarkable Started meclizine 25 mg Follow up with the echocardiogram Chest pain: Ruled out ACS Aspirin 325 administered Atorvastatin can not be initiated given transaminitis EKG repeat pending, EKG on arrival showed NSR Telemetry unit Troponin <3 Transaminitis likely secondary to alcoholic steatosis Hepatitis panel negative Thrombocytopenia likely due to alcoholism Monitor Vitamin-D deficiency Supplemented director of tax services consulted for resources for rehab Lovenox 40 mg sc daily Plan discussed with patient in which all questions have been answered Goals of care discussed for 21 minutes, full code status Case discussed with Dr. Carlson. Plan discussed with: Patient Dietary Evaluation Review Comments: Continue current POC Expected Outcomes/Goals: to meet 75% estimated needs FU 5-7 days Date of Service: Jul 25, 2024 Billing Provider: PEARL CARLSON MD Common Visit Codes: [id number] INP/OBS CARE(HIGH) RODOLFO STUART RESIDENT Jul 25, 2024 15:36 PEARL CARLSON MD Jul 25, 2024 22:11
--- NOTE | 2024-07-25 15:56 | DVHSR ---
APPROVED REPORT EXAM: Two-dimensional and M-mode echocardiogram with Doppler, color Doppler and Bubble Study. Blood Pressure: 102/71 mmHg INDICATION persistenr dizziness, rule out valvular disease RISK FACTORS Height: 5'3, Weight: 143 DIMENSIONS LVDd4.4 (3.8-5.7cm)LA (2D)2.9 (1.9-4.0cm)Aortic Root3.2 (2.0-3.7cm) LVDs3.3 (2.5-4.0cm)LA (MM) (1.9-4.0cm)Aortic Cusp Exc1.4 (1.5-2.0cm) EF (%) 51.0 (55-70%)Rt. Atrium2.7 (1.9-4.0cm)Asc. Aorta3.2 cm IVSd1.0 (0.7-1.1cm)RV (D) (1.8-2.4cm) PWd1.0 (0.7-1.1cm) Mitral Valve MitralMitral Stenosis E wave0.52m/sMV Mean GR.mmHg A wave0.82m/sMV Peak GR.mmHg E/A ratio0.62D MVAcm2 DECEL [id number] 1/2 Timems Aortic Valve Aortic ValveAortic Stenosis V11.18m/Bruce Mean GR.3mmHg V21.35m/Bruce Peak GR.7mmHg LVOT Diameter1.7 (1.8-2.4cm)Doppler AVA1.98cm2 Pulmonic Valve V20.90m/s Conclusion Sinus rhytm. Normal chamber sizes. Normal Valves EF normal and normal RV function. Doppler is normal \No masses or vegetations.
[2024-07-25] MEDS: THIAMINE HCL 100 MG TAB PO ONE (17:59)
[2024-07-25] MEDS: MULTIPLE VITAMIN TAB PO ONE (18:00)
[2024-07-25] MEDS: MAGNESIUM OXIDE 400 MG TAB PO ONE (18:00)
[2024-07-25] MEDS: FOLIC ACID 1 MG TAB PO ONE (18:00)
[2024-07-26 01:00] VITALS: BP 102/65; PULSE 68; RESP 18; TEMP 97.7; O2SAT 96
[2024-07-26 05:00] VITALS: BP 107/62; PULSE 70; RESP 20; TEMP 96.8; O2SAT 97
[2024-07-26 08:00] VITALS: PULSE 82; PULSE 83; PULSE 88; RESP 16; O2SAT 98
[2024-07-26 09:00] VITALS: BP 159/90; PULSE 82; RESP 16; TEMP 98.3; O2SAT 98
[2024-07-26] MEDS: MAGNESIUM OXIDE 400 MG TAB PO SCH (09:57)
[2024-07-26] MEDS: THIAMINE HCL 100 MG TAB PO SCH (09:57)
[2024-07-26] MEDS: MULTIPLE VITAMIN TAB PO SCH (09:57)
[2024-07-26] MEDS: FOLIC ACID 1 MG TAB PO SCH (09:57)
[2024-07-26] MEDS ORDERED: CHOL20007 OR (12:28)
[2024-07-26] MEDS ORDERED: FOLI-119 PO (12:28)
[2024-07-26] MEDS ORDERED: THIA100T10 PO (12:28)
[2024-07-26] MEDS ORDERED: GABA-1250 PO (12:28)
[2024-07-26] MEDS ORDERED: MECL-90 PO (12:28)
[2024-07-26] MEDS ORDERED: MULTTAB99 PO (12:28)
--- NOTE | 2024-07-26 12:28 | DVHDSRES ---
Discharge Summary Date of Admission Resident Creating Document: ANATOLIY LABOY RESIDENT Jul 19, 2024 at 09:10 Date of Discharge: Jul 26, 2024 Labs/Diagnostic Data: Laboratory Results Test 07/24/24 08:35 07/23/24 05:29 07/21/24 06:51 07/20/24 19:41 Stool Occult Blood Negative (Negative) Stool Occult Blood Sample #3 (Negative) Stool for White Cells None seen Sodium Level 141 mmol/L (136-145) Potassium Level 3.5 mmol/L (3.5-5.1) Chloride Level 105 mmol/L (98-107) Carbon Dioxide Level 26 mmol/L (20-31) Anion Gap 10 (5-15) Blood Urea Nitrogen 8 mg/dL (9-23) Creatinine 0.74 mg/dL (0.550-1.02) Glomerular Filtration Rate Calc 93 mL/min (>90) BUN/Creatinine Ratio 10.8 (10.0-20.0) Serum Glucose 117 mg/dL (74-106) Calcium Level 9.0 mg/dL (8.7-10.4) White Blood Count 3.3 10^3/uL (4.4-10.8) Red Blood Count 4.20 10^6/uL (4.0-5.20) Hemoglobin 13.8 g/dL (12.2-16.2) Hematocrit 40.0 % (36.0-46.0) Mean Corpuscular Volume 95.4 fL (80.0-100.0) Mean Corpuscular Hemoglobin 33.0 pg (28.0-32.0) Mean Corpuscular Hemoglobin Concent 34.6 g/dL (32.0-36.0) Red Cell Distribution Width 16.3 % (11.8-14.3) Platelet Count 79 10^3/uL (140-450) Mean Platelet Volume 9.0 fL (6.9-10.8) Neutrophils (%) (Auto) 67.2 % (37.0-80.0) Lymphocytes (%) (Auto) 24.8 % (10.0-50.0) Monocytes (%) (Auto) 5.8 % (0.0-12.0) Eosinophils (%) (Auto) 1.7 % (0.0-7.0) Basophils (%) (Auto) 0.5 % (0.0-2.0) Neutrophils # (Auto) 2.2 10 ^3/uL (1.6-8.6) Lymphocytes # (Auto) 0.8 10 ^3/uL (0.4-5.4) Monocytes # (Auto) 0.2 10 ^3/uL (0-1.3) Eosinophils # (Auto) 0.1 10 ^3/uL (0-0.8) Basophils # (Auto) 0 10 ^3/uL (0-0.2) Nucleated Red Blood Cells 0.1 % Phosphorus Level 4.1 mg/dL (2.4-5.1) Magnesium Level 2.3 mg/dL (1.6-2.6) Total Bilirubin 0.7 mg/dL (0.2-1.0) Aspartate Amino Transferase (AST) 104 U/L (13-40) Alanine Aminotransferase (ALT) 113 U/L (7-40) Alkaline Phosphatase 83 U/L (46-116) Total Protein 6.7 g/dL (5.7-8.2) Albumin 4.1 g/dL (3.2-4.8) Prothrombin Time 11.0 sec (9.3-11.8) Prothrombin Time INR 1.04 (0.9-1.15) Activated Partial Thromboplast Time 26.5 SEC (24.5-34.5) Troponin I High Sensitivity < 3 ng/L (</=34) B-Type Natriuretic Peptide 28.61 pg/mL (0-100) Free Thyroxine (T4) Calculated 0.89 ng/dL (0.89-1.76) Total Triiodothyronine (TT3) 1.11 ng/mL (0.60-1.81) Test 07/20/24 06:52 07/19/24 13:39 07/19/24 05:37 Hemoglobin A1c 5.3 % A1C (<5.7) Vitamin B12 Level 349 pg/mL (211-911) Vitamin D 25-Hydroxy 9.1 ng/mL (30.0-100) Folic Acid 19.59 ng/mL (>5.38) Thyroid Stimulating Hormone (TSH) 23.72 uIU/mL (0.55-4.78) Hepatitis B Surface Antigen Negative (Negative) Hepatitis B Surface Antibody Negative (Negative) Hepatitis C Antibody Negative (Negative) Urine Opiates Screen Neg (NEGATIVE) Urine Fentanyl Screen Neg (NEGATIVE) Urine Barbiturates Screen Neg (NEGATIVE) Urine Phencyclidine Screen Neg (NEGATIVE) Urine Amphetamines Screen Neg (NEGATIVE) Urine Benzodiazepines Screen Neg (NEGATIVE) Urine Cocaine Screen Neg (NEGATIVE) Urine Cannabinoids Screen Neg (NEGATIVE) Salicylates Level < 3.0 mg/dL (-30) Acetaminophen Level < 2.0 UG/ML (10.0-20.0) Plasma/Serum Blood Alcohol 33.3 mg/dL (<10) Other Laboratory Tests 07/23/24 05:29 07/21/24 06:51 Brief Hx & Hospital Course: This is a 58-year-old female with past medical history of chronic alcoholism who presented to the ER with a chief complaint of dizziness for a day. Patient reports that her and kids abandoned her and moved to a new house, therefore the patient relapsed after couple of years and has been drinking 1 bottle of wine every day for the past 2 weeks. 07/19 morning patient woke up and the room was spinning, denies any fall or trauma. Reports that her last drink was on 07/19. Systemic ospina, patient reports chills, and resting tremors of hands and generalized weakness, diarrhea for the past 6 days, nonbloody but denies fever. Patient has been also experiencing chest pain, pressure type, diffusely in chest, nonradiating, intermittently for the past couple of days. On arrival to the ER. EKG completed, showed NSR. Past medical history: Chronic alcoholism Past surgical history: Denies PCP: None, patient last saw 1 year ago Home medications: None During the hospitalization, patient reported chest pain. Troponin and EKG unremarkable. Patient was admitted for alcoholic withdrawal and started on Librium taper. He received IV banana bag, thiamine, folic acid supplementation. Tele psych was consulted-patient is started on gabapentin 300 mg TID. She refused antidepressant medication. Patient reported diarrhea, nonbloody, stool occult was negative, stool WBC negative, patient was started on Lomotil. Patient reported persistent dizziness, head CT, MRI brain, carotid Doppler unremarkable. She was started on meclizine 25 mg daily. Echocardiogram showed normal chamber sizes, normal valves, EF normal, normal RV function. No masses or vegetation. technical services manager were consulted and patient on given resources regarding rehab. Patient was extensively counseled regarding alcohol cessation. 07/26-patient is hemodynamically stable, clinically stable, reports feeling better therefore she has been discharged home with the recommendation to follow up with primary care physician within 7 days, follow up with psychiatrist as outpatient within 7 days. Patient agreed to discharge plan. Discharge medication include gabapentin, meclizine, multivitamin, folic and thiamine. Operations or Procedures ORDERING PHYSICIAN: ANATOLIY LABOY RESIDENT PROCEDURE(s): MBHL - BRAIN HEAD WO CONTRAST REASON: r/o mass, persistent dizziness ORDER NUMBER(s): [id number], ACCESSION NUMBER(s): [id number] MRI BRAIN HEAD WO CONTRAST INDICATION: r/o mass, persistent dizziness EXAM DATE: 07/24/2024 02:18 PM COMPARISON: None PROCEDURE: Using a 1.5 Jovanna scanner, multisequence multiplanar imaging of the brain was obtained. FINDINGS: The brainshows normal morphology and signal characteristics. No abnormal T2 hyperintensity, diffusion restriction, or susceptibility hypointensity is present. The ventricles are normal in size. The midline structures are intact. The major intracranial flow voids are present. The aerated spaces are normal. The orbital contents and extracranial soft tissues appear normal. IMPRESSION: No acute abnormal MRI findings of the brain. No obvious masses are seen. ATED BY: HOOD HSU MD DICTATED DATE/TIME: 07/24/24 150 SIGNED BY: HOOD HSU MD SIGNED DATE/TIME: 07/24/24 150 CC: Condition at Discharge: Stable Final Diagnosis/Problems List Acute alcoholic intoxication Alcoholic withdrawal Severe alcohol use disorder Unspecified depressive disorder Ruled out acute stroke Ruled out intracranial mass or hemorrhage Acute gastroenteritis, likely etiology infectious Chest pain, likely secondary to anxiety ruled out ACS Transaminitis likely secondary to alcoholic steatosis Thrombocytopenia due to alcoholism Vitamin-D deficiency Discharge Disposition: Home Discharge Instruct/Medications Diet: Regular Activity: Light activity Follow Up/Referral: Follow up with primary care physician within 7 days Follow up with discharge clinic within 10 days Medications: Tablet folic acid 1 mg daily for the next 30 days Tablet gabapentin 300 mg 3 times daily as needed Tab multivitamin 1 tab p.o. daily Tablet Meclizine daily for dizziness as needed Discharge Statement: "Patient was advised to return to the ER or call 911 if any headaches, dizziness, shortness of breath, chest pain, abdominal pain, bleeding, fevers, or worsening of medical condition. Patient was counseled about treatment plan, medications, possible side effects, patientverbalized understanding. All questions were answered to the best of my ability. This discharge took greater then 30 minutes in planning, reviewing documentation, counseling the patient, and discussing with other team members." ASSESSMENT ASSESSMENT Assessment Acute alcoholic intoxication Alcoholic withdrawal Acute gastroenteritis, likely etiology infectious Date of Service: Jul 26, 2024 Billing Provider: PEARL WELSH MD Common Visit Codes: [id number] DISCH DAY >30min ANATOLIY LABOY RESIDENT Jul 26, 2024 12:28 PEARL WELSH MD Jul 28, 2024 21:08
[2024-07-26 12:30] VITALS: BP 159/90; PULSE 82; RESP 16; TEMP 98.3; O2SAT 98
[2024-07-26 13:24] VITALS: BP 159/90; PULSE 82; RESP 16; TEMP 98.3; O2SAT 98
== END 2024-07-26 15:40 | disposition home or self-care (01) | DRG 249 ==
LOC: EDBD 03:36 → ER 03:37 → OVERFLOW 09:10 → WEST WING 16:31 → TELE-WESTW 07-23 22:43
PROVIDERS: ADMIT Internal Medicine Geriatric Medicine; ATTEND Emergency Medicine
DX: A09 Infectious gastroenteritis and colitis, unspecified (principal); G92.8 Other toxic encephalopathy; D69.59 Other secondary thrombocytopenia; K76.0 Fatty (change of) liver, not elsewhere classified; F10.129 Alcohol abuse with intoxication, unspecified; F10.139 Alcohol abuse with withdrawal, unspecified; F32.A Depression, unspecified; E55.9 Vitamin D deficiency, unspecified; F41.9 Anxiety disorder, unspecified; G47.00 Insomnia, unspecified; F17.210 Nicotine dependence, cigarettes, uncomplicated; E86.0 Dehydration; R74.01 Elevation of levels of liver transaminase levels; Z87.730 Personal history of (corrected) cleft lip and palate; Y90.1 Blood alcohol level of 20-39 mg/100 ml
CPT/HCPCS: 36415; 70450; 70551; 76705; 80048; 80053; 80307; 80320; 80329; 82270; 82306; 82607; 82746; 83036; 83735; 83880; 84100; 84439; 84443; 84480; 84484; 85025; 85048; 85610; 85730; 86706; 86803; 87340; 93005; 93306; 93886; 96365; 96375; 97110; 97116; 97163; 97530; G0378; J2405